=== PATIENT | female | born 1940 | race African-American/Black ===

== ENCOUNTER 2017-02-21 12:22 | Inpatient (IN) | payer MEDICARE, MEDICAID ==
[2017-02-21 14:44] LABS: HEMATOCRIT 21.5 % (36.0-47.0); HGB HCT DIFFERENCE -1.1; MEAN CORPUSCULAR HGB CONC 31.5 g/dL (32.0-36.0); MEAN CORPUSCULAR VOLUME 73 fl (80-97); RED BLOOD COUNT 2.94 10^6/uL (3.72-5.28); RED CELL DISTRIBUTION WIDTH 19.1 % (11.5-14.0); WHITE BLOOD COUNT 7.4 10^3/uL (4.0-10.5)
[2017-02-21 15:08] LABS: ALANINE AMINOTRANSFERASE 31 U/L (9-52); ALBUMIN 2.7 g/dL (3.5-5.0); ALKALINE PHOSPHATASE 139 U/L (38-126); ANION GAP 11 (5-19); ASPARTATE AMINO TRANSFERASE 22 U/L (14-36); BILIRUBIN,DIRECT 0.3 mg/dL (0.0-0.4); BILIRUBIN,TOTAL 0.3 mg/dL (0.2-1.3); BLOOD UREA NITROGEN 55 mg/dL (7-20); CALCIUM 9.5 mg/dL (8.4-10.2); CARBON DIOXIDE 28 mmol/L (22-30); CHLORIDE 107 mmol/L (98-107); CREATINE KINASE 44 U/L (30-135); CREATININE RESULT 1.99 mg/dL (0.52-1.25); GLUCOSE 136 mg/dL (75-110); POTASSIUM 4.3 mmol/L (3.6-5.0); TOTAL PROTEIN 5.6 g/dL (6.3-8.2)
[2017-02-21 15:14] LABS: HEMOGLOBIN 6.8 g/dL (12.0-15.5)
[2017-02-21 15:15] LABS: CREATINE KINASE MB 1.99 ng/mL (<4.55)
[2017-02-21 15:17] LABS: BASOPHILS % (MANUAL) 0 % (0-2); EOSINOPHILS % (MANUAL) 2 % (0-6); LYMPHOCYTES % (MANUAL) 23 % (13-45); TOTAL CELLS COUNTED 100
[2017-02-21 15:18] LABS: NUCLEATED RED BLOOD CELLS 6 /100 WBC (0); TROPONIN I < 0.012 ng/mL
[2017-02-21 15:22] LABS: ANISOCYTOSIS 2+; HYPOCHROMASIA 2+; OVALOCYTES 1+; POIKILOCYTOSIS 2+; SCHISTOCYTES 1+; TARGET CELLS SLIGHT; TOXIC GRANULATION SLIGHT; TOXIC VACUOLATION PRESENT
[2017-02-21 15:35] LABS: THYROID STIMULATING HORMONE 2.02 uIU/mL (0.47-4.68)
[2017-02-21] MEDS ORDERED: DEXTROSE 40% GEL 15 GM TUBE PO PRN (16:14)
[2017-02-21] MEDS ORDERED: DEXTROSE 50%-WATER SYRINGE 25 GM/50 ML DOSE IV PRN (16:14)
[2017-02-21] MEDS ORDERED: DEXTROSE 40% GEL 15 GM TUBE X 2 PO PRN (16:14)
[2017-02-21] MEDS ORDERED: DEXTROSE 50%-WATER SYRINGE 12.5 GM/25 ML DOSE IV PRN (16:14)
[2017-02-21] MEDS ORDERED: GLUCAGON,HUMAN RECOMB 1 MG INJ IM PRN (16:14)
--- NOTE | 2017-02-21 19:34 | EKG REPORT ---
SEVERITY:- ABNORMAL ECG - SINUS RHYTHM PROBABLE LEFT ATRIAL ABNORMALITY LOW VOLTAGE THROUGHOUT NONSPECIFIC T ABNORMALITIES, LATERAL LEADS : Confirmed by: Inna Fuller MD 21-Feb-2017 19:33:41
[2017-02-21 21:49] LABS: PROTHROMBIN TIME 12.8 SEC (11.4-15.4)
[2017-02-21 21:50] LABS: PARTIAL THROMBOPLASTIN TIME 37.4 SEC (23.5-35.8)
[2017-02-21 22:11] LABS: CREATINE KINASE MB 2.01 ng/mL (<4.55)
[2017-02-21 22:15] LABS: TROPONIN I < 0.012 ng/mL
[2017-02-21] MEDS: ISOSORBIDE MONONITRATE 20 MG TABLET PO SCH (22:19)
[2017-02-21] MEDS: POTASSIUM CHLORIDE 10 MEQ TABLET.SA PO SCH (22:19)
[2017-02-21] MEDS: PREGABALIN 25 MG CAPSULE PO SCH (22:19)
[2017-02-21] MEDS: CARVEDILOL 3.125 MG TABLET PO SCH (22:20)
[2017-02-21] MEDS: SIMVASTATIN 10 MG TABLET PO SCH (22:21)
[2017-02-21] MEDS: BUDESONIDE/FORMOTEROL 160-4.5 MCG 60 PUFF/6 GM MDI IH SCH (22:23)
[2017-02-21] MEDS: HYDRALAZINE HCL 50 MG TABLET PO SCH (22:23)
[2017-02-21] MEDS: INSULIN GLARGINE,HUM.REC.ANLOG 300 UNIT/3 ML INSULN.PEN SUBCUT SCH (22:24)
[2017-02-21] MEDS: INSULIN REG, HUMAN 100 UNIT/ML 3 ML VIAL (PYX) SUBCUT PRN (22:26)
[2017-02-21] MEDS: FUROSEMIDE INJ/PF 20 MG/2 ML SDV IV PRN (22:38)
[2017-02-22] MEDS: ASPIRIN 81 MG TABLET, CHEWABLE PO SCH ×2 (01:49→10:10)
[2017-02-22] MEDS: FUROSEMIDE INJ/PF 20 MG/2 ML SDV IV PRN (03:55)
[2017-02-22] MEDS: HYDRALAZINE HCL 50 MG TABLET PO SCH ×3 (06:06→21:35)
[2017-02-22] MEDS: ISOSORBIDE MONONITRATE 20 MG TABLET PO SCH ×3 (06:07→21:35)
[2017-02-22 08:36] LABS: HGB HCT DIFFERENCE -0.8; MEAN CORPUSCULAR HEMOGLOBIN 24.6 pg (27.0-33.4); MEAN CORPUSCULAR HGB CONC 32.4 g/dL (32.0-36.0); MEAN CORPUSCULAR VOLUME 76 fl (80-97); RED BLOOD COUNT 3.82 10^6/uL (3.72-5.28); RED CELL DISTRIBUTION WIDTH 19.2 % (11.5-14.0)
[2017-02-22] MEDS: LANSOPRAZOLE 15 MG TAB.RAP.DR PO SCH (08:46)
[2017-02-22 08:55] LABS: CREATINE KINASE MB 1.78 ng/mL (<4.55)
[2017-02-22 09:08] LABS: TROPONIN I < 0.012 ng/mL
[2017-02-22 09:12] LABS: HEMOGLOBIN 9.4 g/dL (12.0-15.5)
[2017-02-22] MEDS: BUDESONIDE/FORMOTEROL 160-4.5 MCG 60 PUFF/6 GM MDI IH SCH ×2 (10:09→21:43)
[2017-02-22] MEDS: POTASSIUM CHLORIDE 10 MEQ TABLET.SA PO SCH ×2 (10:10→21:35)
[2017-02-22] MEDS: PREGABALIN 25 MG CAPSULE PO SCH ×2 (10:10→21:36)
[2017-02-22] MEDS: FUROSEMIDE 80 MG TABLET PO SCH (10:10)
[2017-02-22] MEDS: CHOLECALCIFEROL (D3) 1,000 UNIT TABLET PO SCH (10:11)
[2017-02-22] MEDS: CARVEDILOL 3.125 MG TABLET PO SCH ×2 (10:11→21:36)
[2017-02-22] MEDS ORDERED: LIDOCAINE 1% INJ-PF (10 MG/ML) 30 ML SDV INJ PRN (10:29)
[2017-02-22] MEDS: INSULIN REG, HUMAN 100 UNIT/ML 3 ML VIAL (PYX) SUBCUT PRN ×2 (12:33→17:00)
[2017-02-22 14:57] LABS: FLUID APPEARANCE CLOUDY; FLUID TYPE PLEURAL
[2017-02-22 14:58] LABS: FLUID RBC DILUENT USED SALINE; FLUID RBC DILUTION FACTOR 51; FLUID RBC SIDE 1 129; FLUID RBC SIDE 2 125; TOTAL RBC SQUARES COUNTED FLD 50
--- NOTE | 2017-02-22 15:20 | PDOC H&P ---
History of Present Illness Admission Date/PCP: 02/21/17 12:22 History of Present Illness: CAITLIN YAO is a 76 year old female she came to the office for the first time to establish with us, she just relocated from [facility] in the office she was evaluated the blood pressure that was recorded was 76/44, that was electronic blood pressure recorded, the Roderick blood pressure was 60 systolic, and also on examination and on auscultation of the chest that was diminished air entry on the left lung field when compared to the right side because of for these findings she was admitted directly from the office into the hospital. The hemogram revealed hemoglobin of 6.8, she denies any passage of black tarry stool or any bloody stool but patient's daughter stated that about 2 weeks ago she was hospitalized in [facility] because of severe epistasis and she was managed with packing. She was not transfused at the time though so I assume that she probably was not anemic. Family gave history of diabetes with complication including nephropathy the also stated that she had cardiomyopathy I am not sure of details for this conditions have no records to review from our transferring state of [place]. Because of the history of cardiomyopathy a 2D echo was done, showed a large pleural effusion but the ejection fraction was preserved chest x-ray that was done also confirmed a left pleural effusion. The initial chest x-ray was done suggest fracture ribs on there was a concern that this could be hematoma but there is no history of fall or injury or trauma to the chest. CT chest without contrast was ordered, he showed on the left side a large pleural effusion with water density the pleural fluid appears loculated in the anterior of the left lower hemithorax there is also a moderate- sized pleural effusion on the right side. When I reviewed her medication she was on Xarelto but the indication is not clear, when she left [place] the Xarelto was discontinued because according to daughter there is no more indication for is use.. The 12-lead EKG shows sinus rhythm there is no acute ST T-wave segment changes Past Medical History Cardiac Medical History: Reports: Other - Unspecified cardiomyopathy Endocrine Medical History: Reports: Diabetes Mellitus Type 2 Renal/ Medical History: Reports: Chronic Kidney Disease - Chronic kidney disease stage III Social History Smoking Status: Never Smoker Frequency of Alcohol Use: None Hx Recreational Drug Use: No Drugs: None Hx Prescription Drug Abuse: No Family History Parental Family History Reviewed: Yes Children Family History Reviewed: Yes Sibling(s) Family History Reviewed.: Yes Medication/Allergy Home Medications: Aspirin [Aspirin 81 mg Chewable Tablet] 81 mg PO DAILY 02/21/17 Budesonide/Formoterol Fumarate [Symbicort Hfa 160-4.5 Mcg Inhaler 6 gm] 2 puff IH Q12 02/21/17 Carvedilol [Coreg 3.125 mg Tablet] 3.125 mg PO Q12 02/21/17 Cholecalciferol (Vitamin D3) [D3-2000] 2,000 unit PO DAILY 02/21/17 Ergocalciferol (Vitamin D2) [Drisdol 50,000 unit (1.25MG) Capsule] 50,000 units PO Q7MP PRN 02/21/17 Furosemide [Lasix] 80 mg PO DAILY 02/21/17 Hydralazine HCl 50 mg PO TID 02/21/17 Insulin Glargine,Hum.rec.anlog [Lantus Solostar] 26 unit SQ QHS 02/21/17 Isosorbide Mononitrate [Ismo 20 Mg Tablet] 20 mg PO TID 02/21/17 Omeprazole 20 mg PO DAILY 02/21/17 Potassium Chloride [Klor-Con 10 Meq Tablet.sa] 10 meq PO Q12 02/21/17 Pregabalin [Lyrica 25 Mg Capsule] 25 mg PO BID 02/21/17 Simvastatin 20 mg PO QHS 02/21/17 Allergies/Adverse Reactions: No Known Allergies Allergy (Unverified 02/21/17 15:46) Review of Systems Constitutional: PRESENT: fatigue, weakness Eyes: ABSENT: visual disturbances Ears: ABSENT: hearing changes Cardiovascular: PRESENT: dyspnea on exertion Respiratory: PRESENT: dyspnea Gastrointestinal: ABSENT: abdominal pain, constipation, diarrhea, hematemesis, hematochezia, nausea, vomiting Genitourinary: ABSENT: dysuria, hematuria Musculoskeletal: ABSENT: joint swelling Integumentary: ABSENT: rash, wounds Neurological: ABSENT: abnormal gait, abnormal speech, confusion, dizziness, focal weakness, syncope Psychiatric: ABSENT: anxiety, depression, homidical ideation, suicidal ideation Endocrine: ABSENT: cold intolerance, heat intolerance, menstrual abnormalities, polydipsia, polyuria Hematologic/Lymphatic: ABSENT: easy bleeding, easy bruising, lymphadenopathy Physical Exam Vital Signs: Temp Pulse Resp BP Pulse Ox 97.5 F 92 19 127/63 H 98 02/22/17 11:34 02/22/17 11:34 02/22/17 11:34 02/22/17 11:34 02/22/17 11:34 Intake & Output 02/21/17 02/22/17 02/23/17 06:59 06:59 06:59 Intake Total 2019 118 Balance 2019 118 Weight 81 kg General appearance: PRESENT: other - Elderly female she is alert, oriented Head exam: PRESENT: atraumatic, normocephalic Eye exam: PRESENT: conjunctiva pink, EOMI, PERRLA Mouth exam: PRESENT: moist, tongue midline Neck exam: PRESENT: full ROM Respiratory exam: PRESENT: decreased breath sounds Cardiovascular exam: PRESENT: RRR, +S1, +S2 GI/Abdominal exam: PRESENT: normal bowel sounds, soft Rectal exam: PRESENT: deferred Extremities exam: PRESENT: pedal edema Neurological exam: PRESENT: alert, CN II-XII grossly intact Psychiatric exam: PRESENT: appropriate affect, normal mood. ABSENT: homicidal ideation, suicidal ideation Skin exam: PRESENT: dry, intact, warm Results Laboratory Results: 02/22/17 08:01 02/21/17 14:22 02/21/17 02/21/17 02/21/17 14:22 14:22 14:22 WBC 7.4 RBC 2.94 L Hgb 6.8 L Hct 21.5 L MCV 73 L MCH 23.0 L MCHC 31.5 L RDW 19.1 H Plt Count 178 Seg Neutrophils % Not Reportable Lymphocytes % Not Reportable Monocytes % Not Reportable Eosinophils % Not Reportable Basophils % Not Reportable Absolute Neutrophils Not Reportable Absolute Lymphocytes Not Reportable Absolute Monocytes Not Reportable Absolute Eosinophils Not Reportable Absolute Basophils Not Reportable Retic Count (auto) Absolute Retic Sodium 146.0 H Potassium 4.3 Chloride 107 Carbon Dioxide 28 Anion Gap 11 BUN 55 H Creatinine 1.99 H Est GFR ( Amer) 30 L Est GFR (Non-Af Amer) 24 L Glucose 136 H Calcium 9.5 Iron TIBC % Saturation Ferritin Total Bilirubin 0.3 AST 22 ALT 31 Alkaline Phosphatase 139 H Total Protein 5.6 L Albumin 2.7 L Vitamin B12 Folate TSH 2.02 Free T4 1.35 Stool Occult Blood Blood Type Antibody Screen 02/21/17 02/21/17 02/21/17 14:22 14:22 16:25 WBC RBC Hgb Hct MCV MCH MCHC RDW Plt Count Seg Neutrophils % Lymphocytes % Monocytes % Eosinophils % Basophils % Absolute Neutrophils Absolute Lymphocytes Absolute Monocytes Absolute Eosinophils Absolute Basophils Retic Count (auto) 2.20 Absolute Retic 0.065 Sodium Potassium Chloride Carbon Dioxide Anion Gap BUN Creatinine Est GFR ( Amer) Est GFR (Non-Af Amer) Glucose Calcium Iron 11.0 L TIBC 340 % Saturation 3 Ferritin 110.00 Total Bilirubin AST ALT Alkaline Phosphatase Total Protein Albumin Vitamin B12 909.0 Folate 12.10 TSH Free T4 Stool Occult Blood Blood Type A POSITIVE Antibody Screen NEGATIVE 02/21/17 02/22/17 22:30 08:01 WBC 8.0 RBC 3.82 Hgb 9.4 L D Hct 29.0 L MCV 76 L MCH 24.6 L MCHC 32.4 RDW 19.2 H Plt Count 162 Seg Neutrophils % Lymphocytes % Monocytes % Eosinophils % Basophils % Absolute Neutrophils Absolute Lymphocytes Absolute Monocytes Absolute Eosinophils Absolute Basophils Retic Count (auto) Absolute Retic Sodium Potassium Chloride Carbon Dioxide Anion Gap BUN Creatinine Est GFR ( Amer) Est GFR (Non-Af Amer) Glucose Calcium Iron TIBC % Saturation Ferritin Total Bilirubin AST ALT Alkaline Phosphatase Total Protein Albumin Vitamin B12 Folate TSH Free T4 Stool Occult Blood NEGATIVE Blood Type Antibody Screen 02/21/17 02/21/17 02/21/17 14:22 14:22 21:30 Creatine Kinase 44 41 CK-MB (CK-2) 1.99 Troponin I < 0.012 NT-Pro-B Natriuret Pep 1060 H 02/21/17 02/22/17 02/22/17 21:30 08:01 08:01 Creatine Kinase 36 CK-MB (CK-2) 2.01 1.78 Troponin I < 0.012 < 0.012 NT-Pro-B Natriuret Pep Impressions: Renal Ultrasound 02/21/17 00:00 IMPRESSION: NORMAL RENAL AND BLADDER ULTRASOUND. Thoracentesis Ultrasound 02/21/17 20:31 IMPRESSION: SUCCESSFUL THORACENTESIS AND 8 UKRAINIAN LEFT CHEST TUBE PLACEMENT USING ULTRASOUND GUIDANCE. Chest CT 02/22/17 00:00 IMPRESSION: Bilateral pleural effusions left greater than right. Fluid over the anterior left lower chest appears loculated. Question loculations in the right pleural effusion posteriorly Chest X-Ray 02/22/17 00:00 IMPRESSION: Post left-sided 8 English pigtail pleural space catheter placement. No left pneumothorax. Slight decrease in large left pleural effusion. Assessment & Plan - Diagnosis (1) Hemothorax on left Is this a current diagnosis for this admission?: YesPlan: She has a large left hemothorax, differential diagnosis would include, malignancy, facial, trauma, coagulopathy. She will require thoracentesis and chest tube placement this be done ultrasound-guided (2) Anemia due to acute blood loss Plan: She be transfused with packed red blood cell (3) Diabetes mellitus type 2 in nonobese Is this a current diagnosis for this admission?: Yes (4) Hypotension Qualifiers: Hypotension type: other hypotension type Qualified Code(s): I95.89 - Other hypotension Is this a current diagnosis for this admission?: YesPlan: The blood pressure was low that was the main indication for hospital admission to start with, this probably related to the blood loss in the pleural space
[2017-02-22 15:26] LABS: PATH REVIEW PATHOLOGIST REVIEWED
--- NOTE | 2017-02-22 17:09 | PDOC PROGRESS REPORT ---
Subjective Progress Note for:: 02/22/17 Subjective:: She was admitted yesterday because of severe hypotension, left-sided pneumothorax, she had thoracentesis done today over a 1000 of hemorrhagic pleural effusion was drained, the etiology is not clear malignancy highly suspected as a possible cause Physical Exam Vital Signs: Temp Pulse Resp BP Pulse Ox 97.3 F 84 19 130/63 H 98 02/22/17 16:33 02/22/17 16:33 02/22/17 16:33 02/22/17 16:33 02/22/17 16:33 Intake & Output 02/21/17 02/22/17 02/23/17 06:59 06:59 06:59 Intake Total 2019 118 Balance 2019 118 Weight 81 kg General appearance: PRESENT: no acute distress Eye exam: PRESENT: PERRLA Respiratory exam: PRESENT: clear to auscultation kamar Cardiovascular exam: PRESENT: +S1, +S2 GI/Abdominal exam: PRESENT: soft Neurological exam: PRESENT: alert Results Laboratory Results: 02/22/17 08:01 02/21/17 14:22 02/21/17 02/21/17 02/21/17 14:22 14:22 14:22 WBC 7.4 RBC 2.94 L Hgb 6.8 L Hct 21.5 L MCV 73 L MCH 23.0 L MCHC 31.5 L RDW 19.1 H Plt Count 178 Retic Count (auto) 2.20 Absolute Retic 0.065 Iron 11.0 L TIBC 340 % Saturation 3 Ferritin 110.00 Vitamin B12 909.0 Folate 12.10 Fluid Type Fluid Source Fluid Color Fluid Appearance Fluid Viscosity Fluid WBC Fluid RBC Stool Occult Blood Blood Type Antibody Screen 02/21/17 02/21/17 02/22/17 16:25 22:30 08:01 WBC 8.0 RBC 3.82 Hgb 9.4 L D Hct 29.0 L MCV 76 L MCH 24.6 L MCHC 32.4 RDW 19.2 H Plt Count 162 Retic Count (auto) Absolute Retic Iron TIBC % Saturation Ferritin Vitamin B12 Folate Fluid Type Fluid Source Fluid Color Fluid Appearance Fluid Viscosity Fluid WBC Fluid RBC Stool Occult Blood NEGATIVE Blood Type A POSITIVE Antibody Screen NEGATIVE 02/22/17 13:40 WBC RBC Hgb Hct MCV MCH MCHC RDW Plt Count Retic Count (auto) Absolute Retic Iron TIBC % Saturation Ferritin Vitamin B12 Folate Fluid Type PLEURAL Fluid Source Fluid Color RED Fluid Appearance CLOUDY Fluid Viscosity LIQUID Fluid WBC 2670 Fluid RBC [address] Stool Occult Blood Blood Type Antibody Screen 02/21/17 02/21/17 02/21/17 14:22 14:22 21:30 Creatine Kinase 44 41 CK-MB (CK-2) 1.99 Troponin I < 0.012 NT-Pro-B Natriuret Pep 1060 H 02/21/17 02/22/17 02/22/17 21:30 08:01 08:01 Creatine Kinase 36 CK-MB (CK-2) 2.01 1.78 Troponin I < 0.012 < 0.012 NT-Pro-B Natriuret Pep Impressions: Renal Ultrasound 02/21/17 00:00 IMPRESSION: NORMAL RENAL AND BLADDER ULTRASOUND. Thoracentesis Ultrasound 02/21/17 20:31 IMPRESSION: SUCCESSFUL THORACENTESIS AND 8 PERSIAN LEFT CHEST TUBE PLACEMENT USING ULTRASOUND GUIDANCE. Chest CT 02/22/17 00:00 IMPRESSION: Bilateral pleural effusions left greater than right. Fluid over the anterior left lower chest appears loculated. Question loculations in the right pleural effusion posteriorly Chest X-Ray 02/22/17 00:00 IMPRESSION: Post left-sided 8 Hungarian pigtail pleural space catheter placement. No left pneumothorax. Slight decrease in large left pleural effusion. Assessment & Plan - Diagnosis (1) Hemothorax on left Is this a current diagnosis for this admission?: Yes (2) Anemia due to acute blood loss Is this a current diagnosis for this admission?: Yes (3) Diabetes mellitus type 2 in nonobese Is this a current diagnosis for this admission?: Yes (4) Hypotension Qualifiers: Hypotension type: other hypotension type Qualified Code(s): I95.89 - Other hypotension Is this a current diagnosis for this admission?: Yes - Plan Summary Plan Summary: The pretransfusion hemoglobin is 9, follow lab data
[2017-02-22 18:35] LABS: HEMATOCRIT 30.7 % (36.0-47.0); HGB HCT DIFFERENCE -0.7; MEAN CORPUSCULAR HEMOGLOBIN 24.7 pg (27.0-33.4); MEAN CORPUSCULAR HGB CONC 32.4 g/dL (32.0-36.0); MEAN CORPUSCULAR VOLUME 76 fl (80-97); RED BLOOD COUNT 4.03 10^6/uL (3.72-5.28); RED CELL DISTRIBUTION WIDTH 19.3 % (11.5-14.0); WHITE BLOOD COUNT 8.9 10^3/uL (4.0-10.5)
[2017-02-22 18:39] LABS: ALANINE AMINOTRANSFERASE 32 U/L (9-52); ALBUMIN 2.7 g/dL (3.5-5.0); ALKALINE PHOSPHATASE 152 U/L (38-126); ANION GAP 12 (5-19); ASPARTATE AMINO TRANSFERASE 18 U/L (14-36); BILIRUBIN,DIRECT 0.3 mg/dL (0.0-0.4); BILIRUBIN,TOTAL 0.4 mg/dL (0.2-1.3); BLOOD UREA NITROGEN 50 mg/dL (7-20); CALCIUM 9.4 mg/dL (8.4-10.2); CARBON DIOXIDE 28 mmol/L (22-30); CHLORIDE 106 mmol/L (98-107); CREATININE RESULT 1.93 mg/dL (0.52-1.25); GLUCOSE 296 mg/dL (75-110); POTASSIUM 4.3 mmol/L (3.6-5.0); SODIUM 145.5 mmol/L (137-145); TOTAL PROTEIN 5.8 g/dL (6.3-8.2)
[2017-02-22 19:02] LABS: BASOPHILS % (MANUAL) 0 % (0-2); EOSINOPHILS % (MANUAL) 2 % (0-6); LYMPHOCYTES % (MANUAL) 21 % (13-45); NUCLEATED RED BLOOD CELLS 14 /100 WBC (0); TOTAL CELLS COUNTED 100
[2017-02-22 19:06] LABS: ANISOCYTOSIS 2+; MICROCYTOSIS SLIGHT; OVALOCYTES 1+; POIKILOCYTOSIS 1+; POLYCHROMASIA SLIGHT; TARGET CELLS 1+
[2017-02-22 19:09] LABS: SCHISTOCYTES SLIGHT
[2017-02-22] MEDS: MORPHINE SULFATE 10 MG/ML INJ IV PRN (20:43)
[2017-02-22] MEDS: SIMVASTATIN 10 MG TABLET PO SCH (21:35)
[2017-02-22] MEDS: INSULIN GLARGINE,HUM.REC.ANLOG 300 UNIT/3 ML INSULN.PEN SUBCUT SCH (22:32)
[2017-02-23] MEDS: MORPHINE SULFATE 10 MG/ML INJ IV PRN ×3 (00:46→10:59)
[2017-02-23] MEDS: ISOSORBIDE MONONITRATE 20 MG TABLET PO SCH ×3 (05:43→22:26)
[2017-02-23] MEDS: HYDRALAZINE HCL 50 MG TABLET PO SCH ×3 (05:43→22:26)
[2017-02-23 06:41] LABS: ALANINE AMINOTRANSFERASE 25 U/L (9-52); ALBUMIN 2.4 g/dL (3.5-5.0); ALKALINE PHOSPHATASE 140 U/L (38-126); ANION GAP 10 (5-19); ASPARTATE AMINO TRANSFERASE 19 U/L (14-36); BILIRUBIN,DIRECT 0.1 mg/dL (0.0-0.4); BILIRUBIN,TOTAL 0.2 mg/dL (0.2-1.3); BLOOD UREA NITROGEN 48 mg/dL (7-20); CALCIUM 9.1 mg/dL (8.4-10.2); CARBON DIOXIDE 30 mmol/L (22-30); CHLORIDE 106 mmol/L (98-107); CREATININE RESULT 1.81 mg/dL (0.52-1.25); GLUCOSE 165 mg/dL (75-110); POTASSIUM 4.4 mmol/L (3.6-5.0); SODIUM 146.1 mmol/L (137-145); TOTAL PROTEIN 5.2 g/dL (6.3-8.2)
[2017-02-23 06:49] LABS: HEMATOCRIT 28.3 % (36.0-47.0); HEMOGLOBIN 9.3 g/dL (12.0-15.5); HGB HCT DIFFERENCE -0.4; MEAN CORPUSCULAR HEMOGLOBIN 24.9 pg (27.0-33.4); MEAN CORPUSCULAR HGB CONC 32.8 g/dL (32.0-36.0); MEAN CORPUSCULAR VOLUME 76 fl (80-97); RED BLOOD COUNT 3.74 10^6/uL (3.72-5.28); RED CELL DISTRIBUTION WIDTH 19.4 % (11.5-14.0)
[2017-02-23 07:20] LABS: WHITE BLOOD COUNT 7.8 10^3/uL (4.0-10.5)
[2017-02-23 07:28] LABS: BASOPHILS % (MANUAL) 1 % (0-2); EOSINOPHILS % (MANUAL) 4 % (0-6); LYMPHOCYTES % (MANUAL) 34 % (13-45); NUCLEATED RED BLOOD CELLS 16 /100 WBC (0); TOTAL CELLS COUNTED 100
[2017-02-23 07:30] LABS: ANISOCYTOSIS 2+; MICROCYTOSIS 1+; OVALOCYTES 1+; TARGET CELLS 1+
[2017-02-23 07:31] LABS: HYPOCHROMASIA 1+; POIKILOCYTOSIS 1+
[2017-02-23 07:32] LABS: POLYCHROMASIA SLIGHT
[2017-02-23] MEDS: LANSOPRAZOLE 15 MG TAB.RAP.DR PO SCH (08:53)
[2017-02-23] MEDS: CHOLECALCIFEROL (D3) 1,000 UNIT TABLET PO SCH (10:57)
[2017-02-23] MEDS: FUROSEMIDE 80 MG TABLET PO SCH (10:57)
[2017-02-23] MEDS: POTASSIUM CHLORIDE 10 MEQ TABLET.SA PO SCH ×2 (10:58→22:25)
[2017-02-23] MEDS: CARVEDILOL 3.125 MG TABLET PO SCH ×2 (10:58→22:24)
[2017-02-23] MEDS: BUDESONIDE/FORMOTEROL 160-4.5 MCG 60 PUFF/6 GM MDI IH SCH ×2 (10:58→22:23)
[2017-02-23] MEDS: PREGABALIN 25 MG CAPSULE PO SCH ×2 (11:02→22:24)
[2017-02-23] MEDS: INSULIN REG, HUMAN 100 UNIT/ML 3 ML VIAL (PYX) SUBCUT PRN (17:30)
--- NOTE | 2017-02-23 17:40 | XCELERA REPORT ---
[address] [address] Transthoracic Echocardiogram Report Name: CAITLIN YAO Age: 76 yrs Gender: Female : 1940 Patient Status: Inpatient Patient Location: [id number]\S\326\[id number]\A Study Date: 02/21/2017 02:33 PM Height: 68 in Weight: 179 lb BSA: 1.9 m2 Procedure: A two-dimensional transthoracic echocardiogram with color flow and Doppler was performed. Study Quality: Fair. Reason For Study: ischemic cardiomyopathy History: ISHCEMIC CARDIOMYOPATHY. Ordering Physician: RIC JAMES Performed By: Richa Shepard Interpretation Summary ISHCEMIC CARDIOMYOPATHY. The left ventricle is normal in size. There is normal left ventricular wall thickness. LV EF is 45% to 50% Left ventricular systolic function is mildly reduced. Doppler measurements suggest impaired left ventricular relaxation, which is associated with grade I/IV or mild diastolic dysfunction There is mild global hypokinesis of the left ventricle. There is no thrombus. The right atrium is normal. The left atrium is mildly dilated. The interatrial septum is intact with no evidence for an atrial septal defect. There is no mitral valve stenosis. There is no evidence of mitral valve prolapse. There is no vegetation seen on the mitral valve. There is a moderate amount of mitral regurgitation There is no aortic valvular vegetation. There is no aortic valve stenosis There is no LVOT obstruction. No aortic regurgitation is present. There is no tricuspid stenosis. There is a mild amount of tricuspid regurgitation Right ventricular systolic pressure is normal. RVSP is 27 mm of Hg , with RA mean of 10. There is no pericardial effusion. Large left pleural effusion. MMode/2D Measurements \T\ Calculations RVDd: 3.9 cm LVIDd: 4.1 cm FS: 29.1 % Ao root diam: 3.3 cm IVSd: 0.97 cm LVIDs: 2.9 cm EDV(Teich): 73.7 ml LVPWd: 0.98 cm ESV(Teich): 32.2 ml Ao root area: 8.4 cm2 EF(Teich): 56.3 % LA dimension: 4.2 cm Doppler Measurements \T\ Calculations MV E max delfina: MV P1/2t max delfina: Ao V2 max: LV V1 max P.0 cm/sec 118.5 cm/sec 142.4 cm/sec 3.9 mmHg MV A max delfina: MV P1/2t: 70.0 msec Ao max PG: LV V1 max: 119.0 cm/sec 8.1 mmHg 99.2 cm/sec MV E/A: 0.99 MVA(P1/2t): 3.1 cm2 MV dec slope: 495.9 cm/sec2 MV dec time: 0.24 sec PA V2 max: TR max delfina: 69.0 cm/sec 208.7 cm/sec PA max P.9 mmHgTR max P.4 mmHg Left Ventricle The left ventricle is normal in size. There is normal left ventricular wall thickness. LV EF is 45% to 50%. Left ventricular systolic function is mildly reduced. Doppler measurements suggest impaired left ventricular relaxation, which is associated with grade I/IV or mild diastolic dysfunction. There is mild global hypokinesis of the left ventricle. There is no thrombus. There is no ventricular septal defect visualized. Right Ventricle The right ventricle is grossly normal size. Atria The right atrium is normal. The left atrium is mildly dilated. The interatrial septum is intact with no evidence for an atrial septal defect. Mitral Valve There is no evidence of mitral valve prolapse. There is no vegetation seen on the mitral valve. There is no mitral valve stenosis. There is a moderate amount of mitral regurgitation. Aortic Valve There is no aortic valvular vegetation. There is no aortic valve stenosis. There is no LVOT obstruction. No aortic regurgitation is present. Tricuspid Valve There is no tricuspid stenosis. There is a mild amount of tricuspid regurgitation. Right ventricular systolic pressure is normal. RVSP is 27 mm of Hg , with RA mean of 10. Pulmonic Valve There is no pulmonic valvular stenosis. There is no pulmonic valvular regurgitation. Great Vessels The aortic root is normal size. Effusions There is no pericardial effusion. Large left pleural effusion. : RIC JAMES > Inna Fuller
--- NOTE | 2017-02-23 19:13 | PDOC PROGRESS REPORT ---
Subjective Progress Note for:: 02/23/17 Subjective:: Patient was seen by the bedside, she was admitted 2 days ago because of low blood pressure associated with severe anemia on left pneumothorax, the chest tube was removed today awaiting pathology results. Patient is not urinating and a Sanford catheter to be inserted. She looks like she is slow she does not seem to respond to questions very quickly, I will get a CT of the head/MRI of the head to rule out any intracranial lesion Physical Exam Vital Signs: Temp Pulse Resp BP Pulse Ox 97.2 F 74 19 110/95 H 100 02/23/17 16:35 02/23/17 16:35 02/23/17 16:35 02/23/17 16:35 02/23/17 16:35 Intake & Output 02/22/17 02/23/17 02/24/17 06:59 06:59 06:59 Intake Total 2019 645 195 Output Total 1675 Balance 2019 -0 195 Weight 81 kg 82.2 kg 82.2 kg General appearance: PRESENT: no acute distress Eye exam: PRESENT: PERRLA Cardiovascular exam: PRESENT: +S1, +S2 GI/Abdominal exam: PRESENT: soft Neurological exam: PRESENT: alert Results Laboratory Results: 02/23/17 05:29 02/23/17 05:29 02/21/17 02/22/17 02/22/17 14:22 13:40 13:40 WBC RBC Hgb Hct MCV MCH MCHC RDW Plt Count Seg Neutrophils % Lymphocytes % Monocytes % Eosinophils % Basophils % Absolute Neutrophils Absolute Lymphocytes Absolute Monocytes Absolute Eosinophils Absolute Basophils Sodium Potassium Chloride Carbon Dioxide Anion Gap BUN Creatinine Est GFR ( Amer) Est GFR (Non-Af Amer) Glucose Calcium Transferrin 265 Total Bilirubin AST ALT Alkaline Phosphatase Total Protein Albumin Fluid Glucose 194 Fluid Amylase 13 02/22/17 02/23/17 02/23/17 18:04 05:29 05:29 WBC 8.9 7.8 RBC 4.03 3.74 Hgb 10.0 L 9.3 L Hct 30.7 L 28.3 L MCV 76 L 76 L MCH 24.7 L 24.9 L MCHC 32.4 32.8 RDW 19.3 H 19.4 H Plt Count 153 138 L Seg Neutrophils % Not Reportable Lymphocytes % Not Reportable Monocytes % Not Reportable Eosinophils % Not Reportable Basophils % Not Reportable Absolute Neutrophils Not Reportable Absolute Lymphocytes Not Reportable Absolute Monocytes Not Reportable Absolute Eosinophils Not Reportable Absolute Basophils Not Reportable Sodium 146.1 H Potassium 4.4 Chloride 106 Carbon Dioxide 30 Anion Gap 10 BUN 48 H Creatinine 1.81 H Est GFR ( Amer) 33 L Est GFR (Non-Af Amer) 27 L Glucose 165 H Calcium 9.1 Transferrin Total Bilirubin 0.2 AST 19 ALT 25 Alkaline Phosphatase 140 H Total Protein 5.2 L Albumin 2.4 L Fluid Glucose Fluid Amylase 02/21/17 02/21/17 02/21/17 14:22 14:22 21:30 Creatine Kinase 44 41 CK-MB (CK-2) 1.99 Troponin I < 0.012 NT-Pro-B Natriuret Pep 1060 H 02/21/17 02/22/17 02/22/17 21:30 08:01 08:01 Creatine Kinase 36 CK-MB (CK-2) 2.01 1.78 Troponin I < 0.012 < 0.012 NT-Pro-B Natriuret Pep Impressions: Renal Ultrasound 02/21/17 00:00 IMPRESSION: NORMAL RENAL AND BLADDER ULTRASOUND. Thoracentesis Ultrasound 02/21/17 20:31 IMPRESSION: SUCCESSFUL THORACENTESIS AND 8 PAKISTANI LEFT CHEST TUBE PLACEMENT USING ULTRASOUND GUIDANCE. Chest CT 02/22/17 00:00 IMPRESSION: Bilateral pleural effusions left greater than right. Fluid over the anterior left lower chest appears loculated. Question loculations in the right pleural effusion posteriorly Chest X-Ray 02/23/17 13:27 IMPRESSION: No pneumothorax post left pleural space pigtail catheter removal. Left basilar airspace disease persists. Unchanged right basilar airspace disease and pleural effusion Assessment & Plan - Diagnosis (1) Hemothorax on left Is this a current diagnosis for this admission?: Yes (2) Anemia due to acute blood loss Is this a current diagnosis for this admission?: Yes (3) Diabetes mellitus type 2 in nonobese Is this a current diagnosis for this admission?: Yes (4) Hypotension Qualifiers: Hypotension type: other hypotension type Qualified Code(s): I95.89 - Other hypotension Is this a current diagnosis for this admission?: Yes
[2017-02-23] MEDS: SIMVASTATIN 10 MG TABLET PO SCH (22:25)
[2017-02-23] MEDS: INSULIN GLARGINE,HUM.REC.ANLOG 300 UNIT/3 ML INSULN.PEN SUBCUT SCH (22:26)
[2017-02-24] MEDS: HYDRALAZINE HCL 50 MG TABLET PO SCH ×3 (06:27→21:53)
[2017-02-24] MEDS: ISOSORBIDE MONONITRATE 20 MG TABLET PO SCH ×3 (06:28→21:52)
[2017-02-24] MEDS: LANSOPRAZOLE 15 MG TAB.RAP.DR PO SCH (08:43)
[2017-02-24] MEDS: ASPIRIN 81 MG TABLET, CHEWABLE PO SCH (10:51)
[2017-02-24] MEDS: FUROSEMIDE 80 MG TABLET PO SCH (10:51)
[2017-02-24] MEDS: POTASSIUM CHLORIDE 10 MEQ TABLET.SA PO SCH ×2 (10:51→21:52)
[2017-02-24] MEDS: CARVEDILOL 3.125 MG TABLET PO SCH ×2 (10:52→21:52)
[2017-02-24] MEDS: PREGABALIN 25 MG CAPSULE PO SCH ×2 (10:53→21:52)
[2017-02-24] MEDS: BUDESONIDE/FORMOTEROL 160-4.5 MCG 60 PUFF/6 GM MDI IH SCH ×2 (10:53→21:53)
[2017-02-24] MEDS: CHOLECALCIFEROL (D3) 1,000 UNIT TABLET PO SCH (10:53)
--- NOTE | 2017-02-24 19:04 | PDOC PROGRESS REPORT ---
Subjective Subjective:: She was seen by the bedside, the etiology of the left hemothorax is not clear Physical Exam Vital Signs: Temp Pulse Resp BP Pulse Ox 97.5 F 82 18 115/50 L 98 02/24/17 16:55 02/24/17 16:55 02/24/17 16:55 02/24/17 16:55 02/24/17 16:55 Intake & Output 02/23/17 02/24/17 02/25/17 06:59 06:59 06:59 Intake Total 645 555 970 Output Total 1675 2000 550 Balance -1030 -1445 420 Weight 82.2 kg 78.3 kg General appearance: PRESENT: no acute distress Eye exam: PRESENT: PERRLA Respiratory exam: PRESENT: clear to auscultation kamar GI/Abdominal exam: PRESENT: soft Results Laboratory Results: 02/23/17 05:29 02/23/17 05:29 02/21/17 02/21/17 02/21/17 14:22 14:22 21:30 Creatine Kinase 44 41 CK-MB (CK-2) 1.99 Troponin I < 0.012 NT-Pro-B Natriuret Pep 1060 H 02/21/17 02/22/17 02/22/17 21:30 08:01 08:01 Creatine Kinase 36 CK-MB (CK-2) 2.01 1.78 Troponin I < 0.012 < 0.012 NT-Pro-B Natriuret Pep Impressions: Renal Ultrasound 02/21/17 00:00 IMPRESSION: NORMAL RENAL AND BLADDER ULTRASOUND. Thoracentesis Ultrasound 02/21/17 20:31 IMPRESSION: SUCCESSFUL THORACENTESIS AND 8 MAURITANIAN LEFT CHEST TUBE PLACEMENT USING ULTRASOUND GUIDANCE. Chest CT 02/22/17 00:00 IMPRESSION: Bilateral pleural effusions left greater than right. Fluid over the anterior left lower chest appears loculated. Question loculations in the right pleural effusion posteriorly Head MRI 02/23/17 00:00 IMPRESSION: Negative for acute or sub-acute infarction. Left maxillary sinusitis. Chest X-Ray 02/23/17 13:27 IMPRESSION: No pneumothorax post left pleural space pigtail catheter removal. Left basilar airspace disease persists. Unchanged right basilar airspace disease and pleural effusion Assessment & Plan - Diagnosis (1) Hemothorax on left Is this a current diagnosis for this admission?: Yes (2) Anemia due to acute blood loss Is this a current diagnosis for this admission?: Yes (3) Diabetes mellitus type 2 in nonobese Is this a current diagnosis for this admission?: Yes (4) Hypotension Qualifiers: Hypotension type: other hypotension type Qualified Code(s): I95.89 - Other hypotension Is this a current diagnosis for this admission?: Yes - Plan Summary Plan Summary: Because of the hemothorax is not clear consultation will be obtained from pulmonary
[2017-02-24 19:29] LABS: HEMATOCRIT 30.8 % (36.0-47.0); HEMOGLOBIN 9.9 g/dL (12.0-15.5); HGB HCT DIFFERENCE -1.1; MEAN CORPUSCULAR HEMOGLOBIN 24.3 pg (27.0-33.4); MEAN CORPUSCULAR HGB CONC 32.1 g/dL (32.0-36.0); MEAN CORPUSCULAR VOLUME 76 fl (80-97); RED BLOOD COUNT 4.07 10^6/uL (3.72-5.28); RED CELL DISTRIBUTION WIDTH 19.7 % (11.5-14.0)
[2017-02-24 19:41] LABS: ALANINE AMINOTRANSFERASE 26 U/L (9-52); ALBUMIN 2.5 g/dL (3.5-5.0); ALKALINE PHOSPHATASE 140 U/L (38-126); ANION GAP 11 (5-19); ASPARTATE AMINO TRANSFERASE 19 U/L (14-36); BILIRUBIN,DIRECT 0.3 mg/dL (0.0-0.4); BILIRUBIN,TOTAL 0.3 mg/dL (0.2-1.3); BLOOD UREA NITROGEN 50 mg/dL (7-20); CALCIUM 9.2 mg/dL (8.4-10.2); CARBON DIOXIDE 31 mmol/L (22-30); CHLORIDE 103 mmol/L (98-107); CREATININE RESULT 1.95 mg/dL (0.52-1.25); GLUCOSE 186 mg/dL (75-110); POTASSIUM 4.7 mmol/L (3.6-5.0); SODIUM 145.1 mmol/L (137-145); TOTAL PROTEIN 5.5 g/dL (6.3-8.2)
[2017-02-24 19:50] LABS: BASOPHILS % (MANUAL) 1 % (0-2); EOSINOPHILS % (MANUAL) 1 % (0-6); LYMPHOCYTES % (MANUAL) 34 % (13-45); NUCLEATED RED BLOOD CELLS 25 /100 WBC (0); TOTAL CELLS COUNTED 100
[2017-02-24 19:54] LABS: ANISOCYTOSIS 2+; BURR CELLS SLIGHT; MICROCYTOSIS 1+; OVALOCYTES SLIGHT; POIKILOCYTOSIS 1+; TARGET CELLS 2+; TEAR DROP CELLS 1+
[2017-02-24 19:56] LABS: POLYCHROMASIA SLIGHT
[2017-02-24 19:57] LABS: SCHISTOCYTES SLIGHT
[2017-02-24] MEDS: SIMVASTATIN 10 MG TABLET PO SCH (21:52)
[2017-02-24] MEDS: INSULIN REG, HUMAN 100 UNIT/ML 3 ML VIAL (PYX) SUBCUT PRN (21:53)
[2017-02-24] MEDS: INSULIN GLARGINE,HUM.REC.ANLOG 300 UNIT/3 ML INSULN.PEN SUBCUT SCH (21:53)
[2017-02-25] MEDS: ISOSORBIDE MONONITRATE 20 MG TABLET PO SCH ×3 (06:10→21:58)
[2017-02-25] MEDS: HYDRALAZINE HCL 50 MG TABLET PO SCH ×3 (06:10→22:00)
--- NOTE | 2017-02-25 08:22 | PDOC CONSULTATION ---
Consultation Consult Date: 02/24/17 Attending physician:: RIC JAMES Consult reason:: hemothorax History of Present Illness Admission Date/PCP: 02/21/17 12:22 History of Present Illness: CAITLIN YAO is a 76 year old female she came to the office for the first time to establish with us, she just relocated from [facility] in the office she was evaluated the blood pressure that was recorded was 76/44, that was electronic blood pressure recorded, the Roderick blood pressure was 60 systolic, and also on examination and on auscultation of the chest that was diminished air entry on the left lung field when compared to the right side because of for these findings she was admitted directly from the office into the hospital. The hemogram revealed hemoglobin of 6.8, she denies any passage of black tarry stool or any bloody stool but patient's daughter stated that about 2 weeks ago she was hospitalized in [facility] because of severe epistasis and she was managed with packing. She was not transfused at the time though so I assume that she probably was not anemic. Family gave history of diabetes with complication including nephropathy the also stated that she had cardiomyopathy I am not sure of details for this conditions have no records to review from our transferring state of [place]. Because of the history of cardiomyopathy a 2D echo was done, showed a large pleural effusion but the ejection fraction was preserved chest x-ray that was done also confirmed a left pleural effusion. The initial chest x-ray was done suggest fracture ribs on there was a concern that this could be hematoma but there is no history of fall or injury or trauma to the chest. CT chest without contrast was ordered, he showed on the left side a large pleural effusion with water density the pleural fluid appears loculated in the anterior of the left lower hemithorax there is also a moderate- sized pleural effusion on the right side. When I reviewed her medication she was on Xarelto but the indication is not clear, when she left [place] the Xarelto was discontinued because according to daughter there is no more indication for is use.. The 12-lead EKG shows sinus rhythm there is no acute ST T-wave segment changes Past Medical History Cardiac Medical History: Reports: Other - Unspecified cardiomyopathy Endocrine Medical History: Reports: Diabetes Mellitus Type 2 Renal/ Medical History: Reports: Chronic Kidney Disease - Chronic kidney disease stage III Psychiatric Medical History: Denies: Depression Social History Information Source: Relative Smoking Status: Never Smoker Passive smoke exposure as: Both Frequency of Alcohol Use: None Hx Recreational Drug Use: No Drugs: None Hx Prescription Drug Abuse: No Do you have pets?: No Have you had any respiratory illnesses as a child?: No Have you been exposed to any sick contacts recently?: No Have you had any recent respiratory illnesses?: No Have you travelled outside of [place] in the past 12 months?: Yes - recently moved to [place] from [place] Family History Family History: CAD, DM, Hypertension Parental Family History Reviewed: Yes Children Family History Reviewed: Yes Sibling(s) Family History Reviewed.: Yes Medication/Allergy Home Medications: Aspirin [Aspirin 81 mg Chewable Tablet] 81 mg PO DAILY 02/21/17 Budesonide/Formoterol Fumarate [Symbicort Hfa 160-4.5 Mcg Inhaler 6 gm] 2 puff IH Q12 02/21/17 Carvedilol [Coreg 3.125 mg Tablet] 3.125 mg PO Q12 02/21/17 Cholecalciferol (Vitamin D3) [D3-2000] 2,000 unit PO DAILY 02/21/17 Ergocalciferol (Vitamin D2) [Drisdol 50,000 unit (1.25MG) Capsule] 50,000 units PO Q7MP PRN 02/21/17 Furosemide [Lasix] 80 mg PO DAILY 02/21/17 Hydralazine HCl 50 mg PO TID 02/21/17 Insulin Glargine,Hum.rec.anlog [Lantus Solostar] 26 unit SQ QHS 02/21/17 Isosorbide Mononitrate [Ismo 20 Mg Tablet] 20 mg PO TID 02/21/17 Omeprazole 20 mg PO DAILY 02/21/17 Potassium Chloride [Klor-Con 10 Meq Tablet.sa] 10 meq PO Q12 02/21/17 Pregabalin [Lyrica 25 Mg Capsule] 25 mg PO BID 02/21/17 Simvastatin 20 mg PO QHS 02/21/17 Allergies/Adverse Reactions: No Known Allergies Allergy (Unverified 02/21/17 15:46) Physical Exam Vital Signs: Temp Pulse Resp BP Pulse Ox 97.5 F 82 18 115/50 L 98 02/24/17 16:55 02/24/17 16:55 02/24/17 16:55 02/24/17 16:55 02/24/17 16:55 Intake & Output 02/23/17 02/24/17 02/25/17 06:59 06:59 06:59 Intake Total 645 555 570 Output Total 6825 7340 350 Balance -1030 -1448 220 Weight 82.2 kg 78.3 kg General appearance: PRESENT: disheveled, obese Head exam: PRESENT: atraumatic, normocephalic Eye exam: PRESENT: conjunctiva pale, EOMI Mouth exam: PRESENT: dry mucosa, neck supple Teeth exam: PRESENT: other - poor dentition Neck exam: ABSENT: carotid bruit, JVD, lymphadenopathy, thyromegaly Respiratory exam: PRESENT: decreased breath sounds, prolonged expiratory phas, rhonchi, symmetrical, unlabored Cardiovascular exam: PRESENT: RRR, +S1, +S2 Pulses: PRESENT: normal radial pulses GI/Abdominal exam: PRESENT: normal bowel sounds, soft. ABSENT: distended, guarding, mass, organolmegaly, rebound, tenderness Rectal exam: PRESENT: deferred Musculoskeletal exam: PRESENT: normal inspection Neurological exam: PRESENT: alert, awake Psychiatric exam: PRESENT: normal mood Skin exam: PRESENT: dry, warm Results Laboratory Results: 02/23/17 05:29 02/23/17 05:29 02/21/17 02/21/17 02/21/17 14:22 14:22 21:30 Creatine Kinase 44 41 CK-MB (CK-2) 1.99 Troponin I < 0.012 NT-Pro-B Natriuret Pep 1060 H 02/21/17 02/22/17 02/22/17 21:30 08:01 08:01 Creatine Kinase 36 CK-MB (CK-2) 2.01 1.78 Troponin I < 0.012 < 0.012 NT-Pro-B Natriuret Pep Impressions: Renal Ultrasound 02/21/17 00:00 IMPRESSION: NORMAL RENAL AND BLADDER ULTRASOUND. Thoracentesis Ultrasound 02/21/17 20:31 IMPRESSION: SUCCESSFUL THORACENTESIS AND 8 LAO LEFT CHEST TUBE PLACEMENT USING ULTRASOUND GUIDANCE. Chest CT 02/22/17 00:00 IMPRESSION: Bilateral pleural effusions left greater than right. Fluid over the anterior left lower chest appears loculated. Question loculations in the right pleural effusion posteriorly Head MRI 02/23/17 00:00 IMPRESSION: Negative for acute or sub-acute infarction. Left maxillary sinusitis. Chest X-Ray 02/23/17 13:27 IMPRESSION: No pneumothorax post left pleural space pigtail catheter removal. Left basilar airspace disease persists. Unchanged right basilar airspace disease and pleural effusion Assessment & Plan - Diagnosis (1) Retinopathy due to secondary diabetes mellitus Is this a current diagnosis for this admission?: Yes (2) Weakness generalized Is this a current diagnosis for this admission?: Yes (3) Anemia due to acute blood loss Is this a current diagnosis for this admission?: Yes (4) Diabetes mellitus type 2 in nonobese Is this a current diagnosis for this admission?: Yes (5) Hemothorax on left Is this a current diagnosis for this admission?: YesPlan: check ppd,follow H/H closely,relatively poor historian not sure of all her meds or why she is/was taking them consider bleeding time,checl for malignancy
--- NOTE | 2017-02-25 09:58 | PDOC PROGRESS REPORT ---
Subjective Progress Note for:: 02/25/17 Subjective:: Patient is currently doing fair patient's blood sugar was dropped this morning. Patient's currently sleepy daughter is in the bedside other than that discussed with nursing staff no other events happen Physical Exam Vital Signs: Temp Pulse Resp BP Pulse Ox 97.4 F 81 18 109/51 L 96 02/25/17 07:14 02/25/17 07:14 02/25/17 07:14 02/25/17 07:14 02/25/17 07:14 Intake & Output 02/24/17 02/25/17 02/26/17 06:59 06:59 06:59 Intake Total 555 1020 Output Total 2000 1550 Balance -1445 -530 Weight 78.3 kg General appearance: PRESENT: no acute distress Eye exam: PRESENT: PERRLA Mouth exam: PRESENT: dry mucosa Respiratory exam: PRESENT: clear to auscultation kamar Cardiovascular exam: PRESENT: +S1, +S2 GI/Abdominal exam: PRESENT: normal bowel sounds, soft Neurological exam: PRESENT: alert Results Laboratory Results: 02/24/17 19:13 02/24/17 19:13 02/24/17 02/24/17 19:13 19:13 WBC 8.0 RBC 4.07 Hgb 9.9 L Hct 30.8 L MCV 76 L MCH 24.3 L MCHC 32.1 RDW 19.7 H Plt Count 123 L Seg Neutrophils % Not Reportable Lymphocytes % Not Reportable Monocytes % Not Reportable Eosinophils % Not Reportable Basophils % Not Reportable Absolute Neutrophils Not Reportable Absolute Lymphocytes Not Reportable Absolute Monocytes Not Reportable Absolute Eosinophils Not Reportable Absolute Basophils Not Reportable Sodium 145.1 H Potassium 4.7 Chloride 103 Carbon Dioxide 31 H Anion Gap 11 BUN 50 H Creatinine 1.95 H Est GFR ( Amer) 30 L Est GFR (Non-Af Amer) 25 L Glucose 186 H Calcium 9.2 Total Bilirubin 0.3 AST 19 ALT 26 Alkaline Phosphatase 140 H Total Protein 5.5 L Albumin 2.5 L 02/22/17 13:40 Pleural Fluid AFB Smear Concentration - Final 02/22/17 13:40 Pleural Fluid Acid Fast Bacilli Smear - Final 02/21/17 02/21/17 02/21/17 14:22 14:22 21:30 Creatine Kinase 44 41 CK-MB (CK-2) 1.99 Troponin I < 0.012 NT-Pro-B Natriuret Pep 1060 H 02/21/17 02/22/17 02/22/17 21:30 08:01 08:01 Creatine Kinase 36 CK-MB (CK-2) 2.01 1.78 Troponin I < 0.012 < 0.012 NT-Pro-B Natriuret Pep Impressions: Renal Ultrasound 02/21/17 00:00 IMPRESSION: NORMAL RENAL AND BLADDER ULTRASOUND. Thoracentesis Ultrasound 02/21/17 20:31 IMPRESSION: SUCCESSFUL THORACENTESIS AND 8 [place] LEFT CHEST TUBE PLACEMENT USING ULTRASOUND GUIDANCE. Chest CT 02/22/17 00:00 IMPRESSION: Bilateral pleural effusions left greater than right. Fluid over the anterior left lower chest appears loculated. Question loculations in the right pleural effusion posteriorly Head MRI 02/23/17 00:00 IMPRESSION: Negative for acute or sub-acute infarction. Left maxillary sinusitis. Chest X-Ray 02/23/17 13:27 IMPRESSION: No pneumothorax post left pleural space pigtail catheter removal. Left basilar airspace disease persists. Unchanged right basilar airspace disease and pleural effusion Assessment & Plan - Diagnosis (1) Hemothorax on left Is this a current diagnosis for this admission?: YesPlan: The chest x-ray is getting better will follow with the pulmonary discussed with the daughter on the bedside (2) Diabetes mellitus type 2 in nonobese Is this a current diagnosis for this admission?: YesPlan: Continues to current medications (3) Weakness generalized Is this a current diagnosis for this admission?: YesPlan: Physical therapy - Time Time Spent with patient: 15-24 minutes Medications reviewed and adjusted accordingly: Yes Anticipated discharge: Other Within: Other - Plan Summary Plan Summary: current medications
[2017-02-25] MEDS ORDERED: TUBERCULIN,PURIF.PROT.DERIV. 5 TU/0.1 ML TEST 1 ML VIAL ID ONE (10:00)
[2017-02-25] MEDS: POTASSIUM CHLORIDE 10 MEQ TABLET.SA PO SCH ×2 (10:25→22:00)
[2017-02-25] MEDS: LANSOPRAZOLE 15 MG TAB.RAP.DR PO SCH (10:25)
[2017-02-25] MEDS: ASPIRIN 81 MG TABLET, CHEWABLE PO SCH (10:25)
[2017-02-25] MEDS: FUROSEMIDE 80 MG TABLET PO SCH (10:25)
[2017-02-25] MEDS: PREGABALIN 25 MG CAPSULE PO SCH ×2 (10:25→22:00)
[2017-02-25] MEDS: CHOLECALCIFEROL (D3) 1,000 UNIT TABLET PO SCH (10:26)
[2017-02-25] MEDS: CARVEDILOL 3.125 MG TABLET PO SCH ×2 (10:26→21:58)
[2017-02-25] MEDS: BUDESONIDE/FORMOTEROL 160-4.5 MCG 60 PUFF/6 GM MDI IH SCH ×2 (10:30→22:01)
[2017-02-25 11:04] LABS: ANION GAP 10 (5-19); BLOOD UREA NITROGEN 49 mg/dL (7-20); CALCIUM 9.1 mg/dL (8.4-10.2); CARBON DIOXIDE 32 mmol/L (22-30); CHLORIDE 102 mmol/L (98-107); CREATININE RESULT 2.02 mg/dL (0.52-1.25); GLUCOSE 216 mg/dL (75-110); SODIUM 144.4 mmol/L (137-145)
[2017-02-25 11:38] LABS: CREATININE URINE 71.8 mg/dL (Not Estab.)
[2017-02-25 13:55] LABS: ARTERIAL BLOOD BASE EXCESS 5.6 mmol/L; ARTERIAL BLOOD O2 SATURATION 86.8 % (94-98)
[2017-02-25 14:00] LABS: ALANINE AMINOTRANSFERASE 32 U/L (9-52); ALBUMIN 2.5 g/dL (3.5-5.0); ALKALINE PHOSPHATASE 147 U/L (38-126); ASPARTATE AMINO TRANSFERASE 26 U/L (14-36); BILIRUBIN,DIRECT 0.1 mg/dL (0.0-0.4); BILIRUBIN,TOTAL 0.2 mg/dL (0.2-1.3); TOTAL PROTEIN 5.3 g/dL (6.3-8.2)
[2017-02-25] MEDS: INSULIN REG, HUMAN 100 UNIT/ML 3 ML VIAL (PYX) SUBCUT PRN (16:55)
[2017-02-25] MEDS: SIMVASTATIN 10 MG TABLET PO SCH (22:00)
[2017-02-25] MEDS: INSULIN GLARGINE,HUM.REC.ANLOG 300 UNIT/3 ML INSULN.PEN SUBCUT SCH (22:01)
[2017-02-26] MEDS: ISOSORBIDE MONONITRATE 20 MG TABLET PO SCH ×3 (05:26→23:18)
[2017-02-26] MEDS: HYDRALAZINE HCL 50 MG TABLET PO SCH ×3 (05:26→23:16)
[2017-02-26] MEDS: INSULIN REG, HUMAN 100 UNIT/ML 3 ML VIAL (PYX) SUBCUT PRN ×3 (07:58→17:42)
[2017-02-26] MEDS: LANSOPRAZOLE 15 MG TAB.RAP.DR PO SCH (07:58)
[2017-02-26 08:22] LABS: ARTERIAL BLOOD BASE EXCESS 7.7 mmol/L; ARTERIAL BLOOD O2 SATURATION 93.8 % (94-98)
--- NOTE | 2017-02-26 09:04 | PDOC PROGRESS REPORT ---
Subjective Progress Note for:: 02/26/17 Subjective:: Patient is currently doing fair much better than the yesterday. Patient was very sleepy yesterday and pretty much it workup found that patient's CO2 level is elevated and patient was put on a BiPAP. Patient's much alert awake this morning Patients denied any chest pain denied any shortness of the breath and p.o. intake is good Physical Exam Vital Signs: Temp Pulse Resp BP Pulse Ox 98.5 F 86 18 121/67 96 02/26/17 07:11 02/26/17 07:11 02/26/17 07:11 02/26/17 07:11 02/26/17 07:11 Intake & Output 02/25/17 02/26/17 02/27/17 06:59 06:59 06:59 Intake Total 1020 606 Output Total 1550 1500 Balance -530 -894 General appearance: PRESENT: no acute distress, well-developed, well-nourished Head exam: PRESENT: atraumatic, normocephalic Eye exam: PRESENT: conjunctiva pink, EOMI, PERRLA. ABSENT: scleral icterus Ear exam: PRESENT: normal external ear exam Mouth exam: PRESENT: moist, tongue midline Neck exam: PRESENT: full ROM. ABSENT: carotid bruit, JVD, lymphadenopathy, thyromegaly Respiratory exam: PRESENT: clear to auscultation kamar Cardiovascular exam: PRESENT: RRR. ABSENT: diastolic murmur, rubs, systolic murmur Pulses: PRESENT: normal dorsalis pedis pul, +2 pedal pulses bilateral Vascular exam: PRESENT: normal capillary refill GI/Abdominal exam: PRESENT: normal bowel sounds, soft. ABSENT: distended, guarding, mass, organolmegaly, rebound, tenderness Rectal exam: PRESENT: deferred Neurological exam: PRESENT: alert, awake, oriented to person, oriented to place , oriented to time, oriented to situation, CN II-XII grossly intact. ABSENT: motor sensory deficit Psychiatric exam: PRESENT: appropriate affect, normal mood. ABSENT: homicidal ideation, suicidal ideation Skin exam: PRESENT: dry, intact, warm. ABSENT: cyanosis, rash Results Laboratory Results: 02/24/17 19:13 02/25/17 10:30 02/25/17 02/25/17 02/25/17 10:30 10:30 13:40 Carbonic Acid 1.77 H HCO3/H2CO3 Ratio 18:1 ABG pH 7.36 ABG pCO2 58.8 H ABG pO2 55.1 L ABG HCO3 32.6 H ABG O2 Saturation 86.8 L ABG Base Excess 5.6 FiO2 2L Sodium 144.4 Potassium 5.0 Chloride 102 Carbon Dioxide 32 H Anion Gap 10 BUN 49 H Creatinine 2.02 H Est GFR ( Amer) 29 L Est GFR (Non-Af Amer) 24 L Glucose 216 H Calcium 9.1 Total Bilirubin 0.2 AST 26 ALT 32 Alkaline Phosphatase 147 H Ammonia Total Protein 5.3 L Albumin 2.5 L 02/25/17 02/26/17 14:15 07:55 Carbonic Acid 1.56 H HCO3/H2CO3 Ratio 21:1 ABG pH 7.43 ABG pCO2 51.7 H ABG pO2 68.3 L ABG HCO3 33.2 H ABG O2 Saturation 93.8 L ABG Base Excess 7.7 FiO2 ROOM AIR Sodium Potassium Chloride Carbon Dioxide Anion Gap BUN Creatinine Est GFR ( Amer) Est GFR (Non-Af Amer) Glucose Calcium Total Bilirubin AST ALT Alkaline Phosphatase Ammonia 30.6 Total Protein Albumin 02/22/17 13:40 Pleural Fluid AFB Smear Concentration - Final 02/22/17 13:40 Pleural Fluid Acid Fast Bacilli Smear - Final 02/21/17 02/21/17 02/21/17 14:22 14:22 21:30 Creatine Kinase 44 41 CK-MB (CK-2) 1.99 Troponin I < 0.012 NT-Pro-B Natriuret Pep 1060 H 02/21/17 02/22/17 02/22/17 21:30 08:01 08:01 Creatine Kinase 36 CK-MB (CK-2) 2.01 1.78 Troponin I < 0.012 < 0.012 NT-Pro-B Natriuret Pep Impressions: Renal Ultrasound 02/21/17 00:00 IMPRESSION: NORMAL RENAL AND BLADDER ULTRASOUND. Thoracentesis Ultrasound 02/21/17 20:31 IMPRESSION: SUCCESSFUL THORACENTESIS AND 8 PASHT[place] LEFT CHEST TUBE PLACEMENT USING ULTRASOUND GUIDANCE. Chest CT 02/22/17 00:00 IMPRESSION: Bilateral pleural effusions left greater than right. Fluid over the anterior left lower chest appears loculated. Question loculations in the right pleural effusion posteriorly Head MRI 02/23/17 00:00 IMPRESSION: Negative for acute or sub-acute infarction. Left maxillary sinusitis. Chest X-Ray 02/25/17 00:00 IMPRESSION: Increasing vascular congestion. Bilateral pleural effusions slightly larger than previous. Bibasilar opacities. Assessment & Plan - Diagnosis (1) Hemothorax on left Is this a current diagnosis for this admission?: YesPlan: All resolved (2) Diabetes mellitus type 2 in nonobese Is this a current diagnosis for this admission?: YesPlan: Patient is running low blood sugar will cut down the insulin at night from 25to 15 (3) Weakness generalized Is this a current diagnosis for this admission?: YesPlan: Physical therapy (4) Hypercapnic respiratory failure Qualifiers: Chronicity: chronic Qualified Code(s): J96.12 - Chronic respiratory failure with hypercapnia Is this a current diagnosis for this admission?: YesPlan: We will put the patient in the CPAP pH is stable follow with the pulmonary - Time Time Spent with patient: 15-24 minutes Medications reviewed and adjusted accordingly: Yes Anticipated discharge: Other Within: when bed available - Inpatient Certification Medical Necessity: Need Close Monitoring Due to Risk of Patient Decompensation Post Hospital Care: D/C P[employer] Documentation - Plan Summary Plan Summary: Discussed with the daughter and the bedside about the patient's current condition and all the test results
[2017-02-26 10:33] LABS: ANION GAP 8 (5-19); BLOOD UREA NITROGEN 47 mg/dL (7-20); CARBON DIOXIDE 33 mmol/L (22-30); CHLORIDE 102 mmol/L (98-107); CREATININE RESULT 1.86 mg/dL (0.52-1.25); GLUCOSE 239 mg/dL (75-110); POTASSIUM 4.6 mmol/L (3.6-5.0); SODIUM 142.9 mmol/L (137-145)
[2017-02-26] MEDS: CARVEDILOL 3.125 MG TABLET PO SCH ×2 (10:39→23:18)
[2017-02-26] MEDS: PREGABALIN 25 MG CAPSULE PO SCH ×2 (10:39→23:16)
[2017-02-26] MEDS: CHOLECALCIFEROL (D3) 1,000 UNIT TABLET PO SCH (10:39)
[2017-02-26] MEDS: ASPIRIN 81 MG TABLET, CHEWABLE PO SCH (10:40)
[2017-02-26] MEDS: POTASSIUM CHLORIDE 10 MEQ TABLET.SA PO SCH ×2 (10:40→23:17)
[2017-02-26] MEDS: BUDESONIDE/FORMOTEROL 160-4.5 MCG 60 PUFF/6 GM MDI IH SCH ×2 (10:40→23:17)
[2017-02-26] MEDS: FUROSEMIDE 80 MG TABLET PO SCH (10:40)
[2017-02-26] MEDS: MORPHINE SULFATE 10 MG/ML INJ IV PRN (16:00)
--- NOTE | 2017-02-26 16:56 | EKG REPORT ---
SEVERITY:- ABNORMAL ECG - SINUS RHYTHM LOW VOLTAGE IN FRONTAL LEADS NONSPECIFIC T ABNORMALITIES, ANT-LAT LEADS : Confirmed by: Inna Fuller MD 26-Feb-2017 16:56:32
[2017-02-26] MEDS: SIMVASTATIN 10 MG TABLET PO SCH (23:17)
[2017-02-26] MEDS: INSULIN GLARGINE,HUM.REC.ANLOG 300 UNIT/3 ML INSULN.PEN SUBCUT SCH (23:17)
[2017-02-27] MEDS: HYDRALAZINE HCL 50 MG TABLET PO SCH ×3 (06:37→22:15)
[2017-02-27] MEDS: ISOSORBIDE MONONITRATE 20 MG TABLET PO SCH ×3 (06:37→22:16)
[2017-02-27 06:43] LABS: HEMATOCRIT 30.1 % (36.0-47.0); HEMOGLOBIN 9.7 g/dL (12.0-15.5); MEAN CORPUSCULAR HEMOGLOBIN 24.5 pg (27.0-33.4); MEAN CORPUSCULAR HGB CONC 32.4 g/dL (32.0-36.0); MEAN CORPUSCULAR VOLUME 76 fl (80-97); RED BLOOD COUNT 3.98 10^6/uL (3.72-5.28); RED CELL DISTRIBUTION WIDTH 20.5 % (11.5-14.0)
[2017-02-27 07:16] LABS: ANION GAP 10 (5-19); BLOOD UREA NITROGEN 50 mg/dL (7-20); CALCIUM 9.2 mg/dL (8.4-10.2); CARBON DIOXIDE 31 mmol/L (22-30); CHLORIDE 102 mmol/L (98-107); CREATININE RESULT 2.03 mg/dL (0.52-1.25); GLUCOSE 263 mg/dL (75-110); POTASSIUM 5.4 mmol/L (3.6-5.0); SODIUM 143.2 mmol/L (137-145)
[2017-02-27 07:40] LABS: BASOPHILS % (MANUAL) 0 % (0-2); EOSINOPHILS % (MANUAL) 5 % (0-6); LYMPHOCYTES % (MANUAL) 29 % (13-45); NUCLEATED RED BLOOD CELLS 5 /100 WBC (0); TOTAL CELLS COUNTED 100
[2017-02-27 07:43] LABS: ANISOCYTOSIS 2+; HYPOCHROMASIA 1+; MICROCYTOSIS 1+; POIKILOCYTOSIS 1+; TARGET CELLS 1+
[2017-02-27 07:44] LABS: WHITE BLOOD COUNT 10.4 10^3/uL (4.0-10.5)
[2017-02-27] MEDS: LANSOPRAZOLE 15 MG TAB.RAP.DR PO SCH (08:32)
[2017-02-27] MEDS: INSULIN REG, HUMAN 100 UNIT/ML 3 ML VIAL (PYX) SUBCUT PRN ×3 (08:32→17:37)
[2017-02-27] MEDS: ASPIRIN 81 MG TABLET, CHEWABLE PO SCH (09:30)
[2017-02-27] MEDS: FUROSEMIDE 80 MG TABLET PO SCH (09:30)
[2017-02-27] MEDS: PREGABALIN 25 MG CAPSULE PO SCH ×2 (09:30→22:15)
[2017-02-27] MEDS: CHOLECALCIFEROL (D3) 1,000 UNIT TABLET PO SCH (09:30)
[2017-02-27] MEDS: CARVEDILOL 3.125 MG TABLET PO SCH ×2 (09:31→22:15)
[2017-02-27] MEDS: BUDESONIDE/FORMOTEROL 160-4.5 MCG 60 PUFF/6 GM MDI IH SCH ×2 (09:31→22:14)
[2017-02-27] MEDS: POTASSIUM CHLORIDE 10 MEQ TABLET.SA PO SCH (09:32)
[2017-02-27] MEDS ORDERED: ERGOCALCIFEROL (VITAMIN D2) 50000 UNIT (1.25 MG) CAPSULE PO SCH (10:00)
--- NOTE | 2017-02-27 19:37 | PDOC PROGRESS REPORT ---
Subjective Progress Note for:: 02/27/17 Subjective:: She was seen by the bedside, I was gone this weekend and I came back today to see patient is now requiring noninvasive positive pressure ventilation, BiPAP to support breathing. A 2D echo showed low normal ejection fraction of left ventricle EF of 45-50%, the kidney function is somewhat worsen. She had a history of diabetic nephropathy, questionable cardiorenal syndrome consultation will be obtained from nephrology for assessment, patient's daughter stated that patient will be probably return back to [place] once she discharged from the hospital Physical Exam Vital Signs: Temp Pulse Resp BP Pulse Ox 98.4 F 87 18 98/65 L 91 L 02/27/17 16:00 02/27/17 16:00 02/27/17 16:00 02/27/17 16:00 02/27/17 16:00 Intake & Output 02/26/17 02/27/17 02/28/17 06:59 06:59 06:59 Intake Total 606 388 246 Output Total 1500 2200 1200 Balance -894 -1812 -954 General appearance: PRESENT: no acute distress Eye exam: PRESENT: PERRLA Respiratory exam: PRESENT: clear to auscultation kamar Cardiovascular exam: PRESENT: +S1, +S2 Neurological exam: PRESENT: alert Results Laboratory Results: 02/27/17 05:33 02/27/17 05:33 02/27/17 02/27/17 05:33 05:33 WBC 10.4 RBC 3.98 Hgb 9.7 L Hct 30.1 L MCV 76 L MCH 24.5 L MCHC 32.4 RDW 20.5 H Plt Count 115 L Seg Neutrophils % Not Reportable Lymphocytes % Not Reportable Monocytes % Not Reportable Eosinophils % Not Reportable Basophils % Not Reportable Absolute Neutrophils Not Reportable Absolute Lymphocytes Not Reportable Absolute Monocytes Not Reportable Absolute Eosinophils Not Reportable Absolute Basophils Not Reportable Sodium 143.2 Potassium 5.4 H Chloride 102 Carbon Dioxide 31 H Anion Gap 10 BUN 50 H Creatinine 2.03 H Est GFR ( Amer) 29 L Est GFR (Non-Af Amer) 24 L Glucose 263 H Calcium 9.2 02/21/17 02/21/17 02/21/17 14:22 14:22 21:30 Creatine Kinase 44 41 CK-MB (CK-2) 1.99 Troponin I < 0.012 NT-Pro-B Natriuret Pep 1060 H 02/21/17 02/22/17 02/22/17 21:30 08:01 08:01 Creatine Kinase 36 CK-MB (CK-2) 2.01 1.78 Troponin I < 0.012 < 0.012 NT-Pro-B Natriuret Pep Impressions: Renal Ultrasound 02/21/17 00:00 IMPRESSION: NORMAL RENAL AND BLADDER ULTRASOUND. Thoracentesis Ultrasound 02/21/17 20:31 IMPRESSION: SUCCESSFUL THORACENTESIS AND 8 [place] LEFT CHEST TUBE PLACEMENT USING ULTRASOUND GUIDANCE. Chest CT 02/22/17 00:00 IMPRESSION: Bilateral pleural effusions left greater than right. Fluid over the anterior left lower chest appears loculated. Question loculations in the right pleural effusion posteriorly Head MRI 02/23/17 00:00 IMPRESSION: Negative for acute or sub-acute infarction. Left maxillary sinusitis. Chest X-Ray 02/26/17 00:00 IMPRESSION: CHF. No significant change. Assessment & Plan - Diagnosis (1) Hemothorax on left Is this a current diagnosis for this admission?: Yes (2) Anemia due to acute blood loss Is this a current diagnosis for this admission?: Yes (3) Diabetes mellitus type 2 in nonobese Is this a current diagnosis for this admission?: Yes (4) Hypotension Qualifiers: Hypotension type: other hypotension type Qualified Code(s): I95.89 - Other hypotension Is this a current diagnosis for this admission?: Yes (5) Diabetes mellitus with nephropathy Is this a current diagnosis for this admission?: YesPlan: Consultations obtained from nephrology
[2017-02-27] MEDS: SIMVASTATIN 10 MG TABLET PO SCH (22:15)
[2017-02-27] MEDS: INSULIN GLARGINE,HUM.REC.ANLOG 300 UNIT/3 ML INSULN.PEN SUBCUT SCH (22:15)
[2017-02-28 06:14] LABS: ANION GAP 10 (5-19); BLOOD UREA NITROGEN 47 mg/dL (7-20); CALCIUM 9.4 mg/dL (8.4-10.2); CARBON DIOXIDE 34 mmol/L (22-30); CHLORIDE 100 mmol/L (98-107); CREATININE RESULT 1.96 mg/dL (0.52-1.25); GLUCOSE 258 mg/dL (75-110); POTASSIUM 4.7 mmol/L (3.6-5.0)
[2017-02-28] MEDS: ISOSORBIDE MONONITRATE 20 MG TABLET PO SCH ×3 (06:35→22:56)
[2017-02-28] MEDS: HYDRALAZINE HCL 50 MG TABLET PO SCH ×3 (06:35→22:56)
[2017-02-28] MEDS: LANSOPRAZOLE 15 MG TAB.RAP.DR PO SCH (08:35)
[2017-02-28] MEDS: INSULIN REG, HUMAN 100 UNIT/ML 3 ML VIAL (PYX) SUBCUT PRN ×4 (08:36→23:41)
[2017-02-28] MEDS: BUDESONIDE/FORMOTEROL 160-4.5 MCG 60 PUFF/6 GM MDI IH SCH ×2 (11:44→22:56)
[2017-02-28] MEDS: CHOLECALCIFEROL (D3) 1,000 UNIT TABLET PO SCH (11:44)
[2017-02-28] MEDS: CARVEDILOL 3.125 MG TABLET PO SCH ×2 (11:44→22:56)
[2017-02-28] MEDS: ASPIRIN 81 MG TABLET, CHEWABLE PO SCH (11:44)
[2017-02-28] MEDS: PREGABALIN 25 MG CAPSULE PO SCH ×2 (11:44→22:56)
[2017-02-28] MEDS: FUROSEMIDE 80 MG TABLET PO SCH (11:44)
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
[2017-02-28] MEDS ORDERED: FERUMOXYTOL 510 MG in NORMAL SALINE 100 ML IV ONE (19:00)
--- NOTE | 2017-02-28 20:43 | PDOC PROGRESS REPORT ---
Subjective Progress Note for:: 02/28/17 Subjective:: She was seen by the bedside, she had a spillage of the iron that was given to her. I will consult GI tomorrow because of the anemia and the fact that she has GI symptoms of diarrhea. though the daughter stated that sometime she also have constipation, this suggests irritable bowel syndrome, she has constipation alternating with diarrhea. Physical Exam Vital Signs: Temp Pulse Resp BP Pulse Ox 98.9 F 101 H 20 117/50 L 97 02/28/17 15:30 02/28/17 15:30 02/28/17 15:30 02/28/17 15:30 02/28/17 15:30 Intake & Output 02/27/17 02/28/17 03/01/17 06:59 06:59 06:59 Intake Total 388 750 780 Output Total 2200 2400 900 Balance -1812 -1650 -120 Weight 76.8 kg General appearance: PRESENT: no acute distress Eye exam: PRESENT: PERRLA Respiratory exam: PRESENT: clear to auscultation kamar Cardiovascular exam: PRESENT: +S1, +S2 GI/Abdominal exam: PRESENT: soft Neurological exam: PRESENT: alert, CN II-XII grossly intact Results Laboratory Results: 02/27/17 05:33 02/28/17 05:13 02/28/17 05:13 Sodium 144.0 Potassium 4.7 Chloride 100 Carbon Dioxide 34 H Anion Gap 10 BUN 47 H Creatinine 1.96 H Est GFR ( Amer) 30 L Est GFR (Non-Af Amer) 25 L Glucose 258 H Calcium 9.4 02/22/17 13:40 Pleural Fluid Fungal Smear - Final 02/22/17 13:40 Pleural Fluid Fungal Smear - Final 02/22/17 13:40 Pleural Fluid Fungal Smear - Final 02/21/17 02/21/17 02/21/17 14:22 14:22 21:30 Creatine Kinase 44 41 CK-MB (CK-2) 1.99 Troponin I < 0.012 NT-Pro-B Natriuret Pep 1060 H 02/21/17 02/22/17 02/22/17 21:30 08:01 08:01 Creatine Kinase 36 CK-MB (CK-2) 2.01 1.78 Troponin I < 0.012 < 0.012 NT-Pro-B Natriuret Pep Impressions: Renal Ultrasound 02/21/17 00:00 IMPRESSION: NORMAL RENAL AND BLADDER ULTRASOUND. Thoracentesis Ultrasound 02/21/17 20:31 IMPRESSION: SUCCESSFUL THORACENTESIS AND 8 [place] LEFT CHEST TUBE PLACEMENT USING ULTRASOUND GUIDANCE. Chest CT 02/22/17 00:00 IMPRESSION: Bilateral pleural effusions left greater than right. Fluid over the anterior left lower chest appears loculated. Question loculations in the right pleural effusion posteriorly Head MRI 02/23/17 00:00 IMPRESSION: Negative for acute or sub-acute infarction. Left maxillary sinusitis. Chest X-Ray 02/26/17 00:00 IMPRESSION: CHF. No significant change. Assessment & Plan - Diagnosis (1) Hemothorax on left Is this a current diagnosis for this admission?: Yes (2) Anemia due to acute blood loss Is this a current diagnosis for this admission?: Yes (3) Diabetes mellitus type 2 in nonobese Is this a current diagnosis for this admission?: Yes (4) Hypotension Qualifiers: Hypotension type: other hypotension type Qualified Code(s): I95.89 - Other hypotension Is this a current diagnosis for this admission?: Yes (5) Diabetes mellitus with nephropathy Is this a current diagnosis for this admission?: Yes (6) Diarrhea Qualifiers: Diarrhea type: unspecified type Qualified Code(s): R19.7 - Diarrhea , unspecified Is this a current diagnosis for this admission?: YesPlan: She had diarrhea alternating with constipation, she also presented with severe anemia which I am not sure cannot be explained on the basis of hemothorax by itself, GI consultation will be obtained for GI endoscopy
[2017-02-28] MEDS: SIMVASTATIN 10 MG TABLET PO SCH (22:56)
[2017-02-28] MEDS: INSULIN GLARGINE,HUM.REC.ANLOG 300 UNIT/3 ML INSULN.PEN SUBCUT SCH (23:26)
[2017-03-01] MEDS ORDERED: FERUMOXYTOL (NESRD) 510 MG/17 ML VIAL IV PRN (01:03)
[2017-03-01] MEDS ORDERED: FERUMOXYTOL 510 MG in NORMAL SALINE 100 ML IV ONE (02:00)
[2017-03-01] MEDS ORDERED: FERUMOXYTOL (NESRD) 510 MG/17 ML VIAL IV ONE (02:09)
[2017-03-01] MEDS: ISOSORBIDE MONONITRATE 20 MG TABLET PO SCH ×3 (05:34→22:58)
[2017-03-01] MEDS: HYDRALAZINE HCL 50 MG TABLET PO SCH ×3 (05:34→22:58)
[2017-03-01 07:14] LABS: ANION GAP 13 (5-19); BLOOD UREA NITROGEN 41 mg/dL (7-20); CALCIUM 9.7 mg/dL (8.4-10.2); CARBON DIOXIDE 30 mmol/L (22-30); CHLORIDE 103 mmol/L (98-107); CREATININE RESULT 1.59 mg/dL (0.52-1.25); GLUCOSE 151 mg/dL (75-110); PHOSPHORUS 4.1 mg/dL (2.5-4.5); POTASSIUM 4.5 mmol/L (3.6-5.0); SODIUM 145.8 mmol/L (137-145)
[2017-03-01] MEDS: LANSOPRAZOLE 15 MG TAB.RAP.DR PO SCH (08:16)
[2017-03-01] MEDS: BUDESONIDE/FORMOTEROL 160-4.5 MCG 60 PUFF/6 GM MDI IH SCH ×2 (09:55→22:57)
[2017-03-01] MEDS: FUROSEMIDE 80 MG TABLET PO SCH (09:55)
[2017-03-01] MEDS: CARVEDILOL 3.125 MG TABLET PO SCH ×2 (09:55→22:57)
[2017-03-01] MEDS: ASPIRIN 81 MG TABLET, CHEWABLE PO SCH (09:56)
[2017-03-01] MEDS: CHOLECALCIFEROL (D3) 1,000 UNIT TABLET PO SCH (09:56)
[2017-03-01] MEDS: PREGABALIN 25 MG CAPSULE PO SCH ×2 (09:56→22:58)
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
[2017-03-01] MEDS ORDERED: PEG 3350/NA SULF,BICARB,CL/KCL 4000 ML PO SCH (14:00)
[2017-03-01] MEDS ORDERED: PEG 3350/NA SULF,BICARB,CL/KCL 4000 ML PO PRN (15:01)
[2017-03-01] MEDS: INSULIN REG, HUMAN 100 UNIT/ML 3 ML VIAL (PYX) SUBCUT PRN (16:15)
--- NOTE | 2017-03-01 16:31 | PDOC PROGRESS REPORT ---
Subjective Progress Note for:: 03/01/17 Subjective:: Patient was seen by GI, she is scheduled for GI endoscopy tomorrow including EGD and colonoscopy. It seems that she is requiring BiPAP at night she probably sleep apnea, she will need a sleep study but is outpatient procedure. Physical Exam Vital Signs: Temp Pulse Resp BP Pulse Ox 97.3 F 88 22 H 127/58 H 93 03/01/17 12:55 03/01/17 14:00 03/01/17 12:55 03/01/17 12:55 03/01/17 12:55 Intake & Output 02/28/17 03/01/17 03/02/17 06:59 06:59 06:59 Intake Total 750 1330 476 Output Total 2400 1675 1150 Balance -2059 -244 -102 Weight 76.8 kg 77 kg General appearance: PRESENT: no acute distress Eye exam: PRESENT: PERRLA Neck exam: PRESENT: full ROM Respiratory exam: PRESENT: rhonchi Cardiovascular exam: PRESENT: RRR, +S1, +S2 Vascular exam: PRESENT: normal capillary refill GI/Abdominal exam: PRESENT: normal bowel sounds, soft Rectal exam: PRESENT: deferred Neurological exam: PRESENT: alert, awake, oriented to person, oriented to place , oriented to time, oriented to situation, CN II-XII grossly intact Psychiatric exam: PRESENT: appropriate affect, normal mood Skin exam: PRESENT: dry, intact, warm Results Laboratory Results: 02/27/17 05:33 03/01/17 05:45 03/01/17 05:45 Sodium 145.8 H Potassium 4.5 Chloride 103 Carbon Dioxide 30 Anion Gap 13 BUN 41 H Creatinine 1.59 H Est GFR ( Amer) 38 L Est GFR (Non-Af Amer) 32 L Glucose 151 H Calcium 9.7 Phosphorus 4.1 02/21/17 02/21/17 02/21/17 14:22 14:22 21:30 Creatine Kinase 44 41 CK-MB (CK-2) 1.99 Troponin I < 0.012 NT-Pro-B Natriuret Pep 1060 H 02/21/17 02/22/17 02/22/17 21:30 08:01 08:01 Creatine Kinase 36 CK-MB (CK-2) 2.01 1.78 Troponin I < 0.012 < 0.012 NT-Pro-B Natriuret Pep Impressions: Renal Ultrasound 02/21/17 00:00 IMPRESSION: NORMAL RENAL AND BLADDER ULTRASOUND. Thoracentesis Ultrasound 02/21/17 20:31 IMPRESSION: SUCCESSFUL THORACENTESIS AND 8 [place] LEFT CHEST TUBE PLACEMENT USING ULTRASOUND GUIDANCE. Chest CT 02/22/17 00:00 IMPRESSION: Bilateral pleural effusions left greater than right. Fluid over the anterior left lower chest appears loculated. Question loculations in the right pleural effusion posteriorly Head MRI 02/23/17 00:00 IMPRESSION: Negative for acute or sub-acute infarction. Left maxillary sinusitis. Chest X-Ray 02/26/17 00:00 IMPRESSION: CHF. No significant change. Assessment & Plan - Diagnosis (1) Hemothorax on left Is this a current diagnosis for this admission?: YesPlan: CT chest without contrast to be ordered (2) Anemia due to acute blood loss Is this a current diagnosis for this admission?: Yes (3) Diabetes mellitus type 2 in nonobese Is this a current diagnosis for this admission?: Yes (4) Hypotension Qualifiers: Hypotension type: other hypotension type Qualified Code(s): I95.89 - Other hypotension Is this a current diagnosis for this admission?: Yes (5) Diabetes mellitus with nephropathy Is this a current diagnosis for this admission?: Yes (6) Diarrhea Qualifiers: Diarrhea type: unspecified type Qualified Code(s): R19.7 - Diarrhea , unspecified Is this a current diagnosis for this admission?: Yes
[2017-03-01] MEDS: SIMVASTATIN 10 MG TABLET PO SCH (22:57)
[2017-03-01] MEDS: INSULIN GLARGINE,HUM.REC.ANLOG 300 UNIT/3 ML INSULN.PEN SUBCUT SCH (22:58)
[2017-03-02] MEDS: HYDRALAZINE HCL 50 MG TABLET PO SCH ×3 (05:14→23:19)
[2017-03-02] MEDS: ISOSORBIDE MONONITRATE 20 MG TABLET PO SCH ×3 (05:14→23:18)
[2017-03-02] MEDS: FUROSEMIDE 80 MG TABLET PO SCH (09:52)
[2017-03-02] MEDS: LANSOPRAZOLE 15 MG TAB.RAP.DR PO SCH (09:52)
[2017-03-02] MEDS: ASPIRIN 81 MG TABLET, CHEWABLE PO SCH (09:52)
[2017-03-02] MEDS: CHOLECALCIFEROL (D3) 1,000 UNIT TABLET PO SCH (09:52)
[2017-03-02] MEDS: BUDESONIDE/FORMOTEROL 160-4.5 MCG 60 PUFF/6 GM MDI IH SCH ×2 (09:53→23:17)
[2017-03-02] MEDS: PREGABALIN 25 MG CAPSULE PO SCH ×2 (09:55→23:19)
[2017-03-02] MEDS: CARVEDILOL 3.125 MG TABLET PO SCH ×2 (09:55→23:19)
[2017-03-02] MEDS ORDERED: PROPOFOL INJ 200 MG/20 ML VIAL IV ONE (12:23)
[2017-03-02] MEDS ORDERED: MEPERIDINE HCL/PF INJ 25 MG/1 ML DISP.SYRIN IV PRN (13:02)
[2017-03-02] MEDS ORDERED: PROMETHAZINE HCL INJ 25 MG/1 ML VIAL IV PRN ×2 (13:02)
[2017-03-02] MEDS ORDERED: MORPHINE SULFATE 10 MG/ML INJ IV PRN (13:02)
[2017-03-02] MEDS ORDERED: OXYCODONE-ACETAMINOPHEN 5-325 MG TABLET PO PRN ×2 (13:02)
[2017-03-02] MEDS ORDERED: FENTANYL CITRATE INJ/PF 100 MCG/2 ML AMPUL IV PRN ×3 (13:02)
[2017-03-02] MEDS ORDERED: DIPHENHYDRAMINE HCL 50 MG/ML VIAL IV PRN (13:02)
[2017-03-02] MEDS ORDERED: ONDANSETRON HCL INJ/PF 4 MG/2 ML SDV IV PRN (13:02)
--- NOTE | 2017-03-02 14:26 | Operative Report ---
Operative Report DATE OF SURGERY: 03/02/17 Operative Report: The risks, benefits and alternatives of the procedure including risks of bleeding, perforation requiring surgery are explained to the patient detail and informed consent is obtained. Patient is placed in the left lateral decubital position. Timeout is called. Propofol medication is provided. A rectal examination was done which did not reveal any masses, tears or fissures. An Olympus videoscope was inserted into the patient's rectum. The scope was then gradually advanced all the way to the cecum. The cecum was identified by the usual anatomical landmarks of the ileocecal valve as well as the appendiceal office. Photodocumentation is obtained. Scope was then sequentially pulled back creative rest segments of the colon including the ascending colon, hepatic flexure, transverse colon, splenic flexure, descending colon and finally into the rectosigmoid portions of the colon. Retroflexion maneuvers performed. The risks benefits and alternatives of the procedure explained to the patient in detail and informed consent is obtained that GIF Olympus video scope was inserted into the patient's mouth and hypopharynx the esophagus is identified intubated and insufflated the scope was then advanced through the esophagus stomach and duodenum retroflexion maneuver is done the esophagus stomach and first and second portions of the duodenum examined PREOPERATIVE DIAGNOSIS: Iron deficiency anemia POSTOPERATIVE DIAGNOSIS: Mild right-sided mucosal inflammation status post biopsy\internal hemorrhoids. Gastritis status post biopsy OPERATION: Colonoscopy with biopsy. EGD with biopsy SURGEON: CRISTOFER BHAKTA ANESTHESIA: LMAC TISSUE REMOVED OR ALTERED: Gastric mucosal specimens obtained. Right colon biopsy mucosal specimens obtained COMPLICATIONS: None. ESTIMATED BLOOD LOSS: none. INTRAOPERATIVE FINDINGS: As described above. PROCEDURE: Patient tolerated procedure well. No immediate postprocedure complications are noted. Patient sent back to her room in good condition. Resume her diet. Resume previous activity level Wait on biopsies Further recommendations to follow
[2017-03-02] MEDS ORDERED: LIDOCAINE 2% INJ-PF (20 MG/ML) 10 ML AMPUL ONE (14:42)
--- NOTE | 2017-03-02 19:49 | PDOC PROGRESS REPORT ---
Subjective Progress Note for:: 03/02/17 Subjective:: Patient underwent EGD and colonoscopy today. Gastritis was found. Patient claims that she still feels weak though. She is making adequate urine output. Physical Exam Vital Signs: Temp Pulse Resp BP Pulse Ox 97.8 F 87 20 116/52 L 92 03/02/17 16:51 03/02/17 16:51 03/02/17 16:51 03/02/17 16:51 03/02/17 19:13 Intake & Output 03/01/17 03/02/17 03/03/17 06:59 06:59 06:59 Intake Total 1330 5159 1129 Output Total 1675 3250 850 Balance -345 1909 279 Weight 76.5 kg Exam: General appearance: PRESENT: no acute distress, cooperative, well-developed, well-nourished Head exam: PRESENT: atraumatic, normocephalic Eye exam: PRESENT: conjunctiva pale, PERRLA. ABSENT: scleral icterus Neck exam: ABSENT: JVD Respiratory exam: PRESENT: Diminished breath sounds. ABSENT: crackles, rales, rhonchi, unlabored, wheezes Cardiovascular exam: PRESENT: Regular rate rhythm -+S1, +S2. ABSENT: diastolic murmur, systolic murmur GI/Abdominal exam: PRESENT: normal bowel sounds, soft. ABSENT: guarding, mass, tenderness Extremities exam: ABSENT: No edema Neurological exam: PRESENT: alert, awake, oriented to person, place and time. Skin exam: PRESENT: dry, warm, Results Laboratory Results: 02/27/17 05:33 03/01/17 05:45 03/01/17 05:45 PTH Intact 45 02/22/17 13:40 Pleural Fluid Viral Culture - Final 02/21/17 02/21/17 02/21/17 14:22 14:22 21:30 Creatine Kinase 44 41 CK-MB (CK-2) 1.99 Troponin I < 0.012 NT-Pro-B Natriuret Pep 1060 H 02/21/17 02/22/17 02/22/17 21:30 08:01 08:01 Creatine Kinase 36 CK-MB (CK-2) 2.01 1.78 Troponin I < 0.012 < 0.012 NT-Pro-B Natriuret Pep Impressions: Renal Ultrasound 02/21/17 00:00 IMPRESSION: NORMAL RENAL AND BLADDER ULTRASOUND. Thoracentesis Ultrasound 02/21/17 20:31 IMPRESSION: SUCCESSFUL THORACENTESIS AND 8 POLISH LEFT CHEST TUBE PLACEMENT USING ULTRASOUND GUIDANCE. Head MRI 02/23/17 00:00 IMPRESSION: Negative for acute or sub-acute infarction. Left maxillary sinusitis. Chest X-Ray 02/26/17 00:00 IMPRESSION: CHF. No significant change. Chest CT 03/01/17 00:00 IMPRESSION: Cardiomegaly with significant bilateral pleural effusions. Coronary atherosclerosis. Assessment & Plan - Diagnosis (1) Chronic kidney disease, stage III (moderate) Is this a current diagnosis for this admission?: YesPlan: This is secondary to diabetic nephropathy per history and per patient. Patient' s kidney function is actually stable since admission and even better yesterday. She has nonnephrotic range proteinuria. She is currently nonoliguric. We will get records from her previous non destructive evaluation manager in [place] to see what her baseline kidney function and's. Her previous non destructive evaluation manager is Dr. Pantoja with phone number [phone]. Records still unavailable. Phosphorus and PTH are both normal. (2) Diabetic nephropathy Qualifiers: Diabetes mellitus type: type 2 Qualified Code(s): E11.21 - Type 2 diabetes mellitus with diabetic nephropathy Is this a current diagnosis for this admission?: Yes (3) Anemia due to acute blood loss Is this a current diagnosis for this admission?: YesPlan: This is improved with blood transfusion. Patient also has underlying iron deficiency anemia and most likely anemia of chronic kidney disease. I gave her a dose of IV Feraheme. She probably needs to continue to take ferrous sulfate upon discharge. EGD and colonoscopy results were also done today. Gastritis was found. (4) Diabetes mellitus type 2 in nonobese Is this a current diagnosis for this admission?: Yes (5) Hemothorax on left Is this a current diagnosis for this admission?: Yes - Notes Notes: Continue current management. I will sign off at this point. - Time Time with patient: 15-25 minutes
--- NOTE | 2017-03-02 21:04 | PDOC PROGRESS REPORT ---
Subjective Progress Note for:: 03/02/17 Subjective:: Patient had EGD and colonoscopy done today, there was no significant finding on colonoscopy and EGD done today, the Sanford catheter to be discontinued and patient will be encouraged to urinate on her own Physical Exam Vital Signs: Temp Pulse Resp BP Pulse Ox 97.8 F 87 20 116/52 L 92 03/02/17 16:51 03/02/17 16:51 03/02/17 16:51 03/02/17 16:51 03/02/17 19:13 Intake & Output 03/01/17 03/02/17 03/03/17 06:59 06:59 06:59 Intake Total 1330 5159 1129 Output Total 1675 3250 850 Balance -345 1909 279 Weight 76.5 kg General appearance: PRESENT: no acute distress, well-developed, well-nourished Head exam: PRESENT: atraumatic, normocephalic Eye exam: PRESENT: conjunctiva pink, EOMI, PERRLA. ABSENT: scleral icterus Ear exam: PRESENT: normal external ear exam Mouth exam: PRESENT: moist, tongue midline Neck exam: PRESENT: full ROM Respiratory exam: PRESENT: decreased breath sounds Cardiovascular exam: PRESENT: RRR, +S1, +S2 Vascular exam: PRESENT: normal capillary refill GI/Abdominal exam: PRESENT: normal bowel sounds, soft Rectal exam: PRESENT: deferred Neurological exam: PRESENT: alert, awake, oriented to person, oriented to place , oriented to time, oriented to situation, CN II-XII grossly intact Psychiatric exam: PRESENT: appropriate affect, normal mood Skin exam: PRESENT: dry, intact, warm Results Laboratory Results: 02/27/17 05:33 03/01/17 05:45 03/01/17 05:45 PTH Intact 45 02/22/17 13:40 Pleural Fluid Viral Culture - Final 02/21/17 02/21/17 02/21/17 14:22 14:22 21:30 Creatine Kinase 44 41 CK-MB (CK-2) 1.99 Troponin I < 0.012 NT-Pro-B Natriuret Pep 1060 H 02/21/17 02/22/17 02/22/17 21:30 08:01 08:01 Creatine Kinase 36 CK-MB (CK-2) 2.01 1.78 Troponin I < 0.012 < 0.012 NT-Pro-B Natriuret Pep Impressions: Renal Ultrasound 02/21/17 00:00 IMPRESSION: NORMAL RENAL AND BLADDER ULTRASOUND. Thoracentesis Ultrasound 02/21/17 20:31 IMPRESSION: SUCCESSFUL THORACENTESIS AND 8 KAZAKH LEFT CHEST TUBE PLACEMENT USING ULTRASOUND GUIDANCE. Head MRI 02/23/17 00:00 IMPRESSION: Negative for acute or sub-acute infarction. Left maxillary sinusitis. Chest X-Ray 02/26/17 00:00 IMPRESSION: CHF. No significant change. Chest CT 03/01/17 00:00 IMPRESSION: Cardiomegaly with significant bilateral pleural effusions. Coronary atherosclerosis. Assessment & Plan - Diagnosis (1) Hemothorax on left Is this a current diagnosis for this admission?: Yes (2) Anemia due to acute blood loss Is this a current diagnosis for this admission?: Yes (3) Diabetes mellitus type 2 in nonobese Is this a current diagnosis for this admission?: Yes (4) Hypotension Qualifiers: Hypotension type: other hypotension type Qualified Code(s): I95.89 - Other hypotension Is this a current diagnosis for this admission?: Yes (5) Diabetes mellitus with nephropathy Is this a current diagnosis for this admission?: Yes (6) Diarrhea Qualifiers: Diarrhea type: unspecified type Qualified Code(s): R19.7 - Diarrhea , unspecified Is this a current diagnosis for this admission?: Yes
[2017-03-02] MEDS: SIMVASTATIN 10 MG TABLET PO SCH (23:20)
[2017-03-03] MEDS: INSULIN GLARGINE,HUM.REC.ANLOG 300 UNIT/3 ML INSULN.PEN SUBCUT SCH ×2 (00:14→22:15)
[2017-03-03] MEDS: HYDRALAZINE HCL 50 MG TABLET PO SCH ×3 (06:27→21:55)
[2017-03-03] MEDS: ISOSORBIDE MONONITRATE 20 MG TABLET PO SCH ×3 (06:27→21:55)
[2017-03-03] MEDS: LANSOPRAZOLE 15 MG TAB.RAP.DR PO SCH (07:43)
--- NOTE | 2017-03-03 08:43 | PDOC PROGRESS REPORT ---
Subjective Progress Note for:: 03/03/17 Subjective:: patient underwent GI procedures under Propofol sedation she tolerated well no evidence of any bleeding lesion mild non specific gastritis and right side colon noted biopsies are obtained results are pending no significant overnight issues denies any abdominal pain there is no rectal bleeding patient may need hematology work up for her anemia will wait on biopsies resume normal diet Physical Exam Vital Signs: Temp Pulse Resp BP Pulse Ox 98.3 F 92 16 119/50 L 97 03/03/17 07:22 03/03/17 07:22 03/03/17 07:22 03/03/17 07:22 03/03/17 07:22 Intake & Output 03/02/17 03/03/17 03/04/17 06:59 06:59 06:59 Intake Total 5159 1449 Output Total 3250 1550 Balance 1909 -101 Weight 76.5 kg 76 kg General appearance: PRESENT: no acute distress, well-developed, well-nourished Head exam: PRESENT: atraumatic, normocephalic Eye exam: PRESENT: EOMI, PERRLA. ABSENT: scleral icterus Mouth exam: PRESENT: moist Throat exam: ABSENT: tonsillar exudate, tonsillogmegaly Neck exam: ABSENT: meningismus, tenderness, thyromegaly Respiratory exam: PRESENT: symmetrical. ABSENT: stridor Cardiovascular exam: PRESENT: RRR, +S1, +S2. ABSENT: clicks, rubs Pulses: PRESENT: normal carotid pulses GI/Abdominal exam: PRESENT: soft. ABSENT: ascites, Naik's sign, rebound, rigid Extremities exam: ABSENT: joint swelling Musculoskeletal exam: PRESENT: full ROM Neurological exam: PRESENT: oriented to time, oriented to situation, reflexes normal, CN II-XII grossly intact Psychiatric exam: PRESENT: appropriate affect Skin exam: PRESENT: normal color. ABSENT: cyanosis, erythema, jaundice, mottled , vesicles Results Laboratory Results: 02/27/17 05:33 03/01/17 05:45 03/01/17 05:45 PTH Intact 45 02/22/17 13:40 Pleural Fluid Viral Culture - Final 02/21/17 02/21/17 02/21/17 14:22 14:22 21:30 Creatine Kinase 44 41 CK-MB (CK-2) 1.99 Troponin I < 0.012 NT-Pro-B Natriuret Pep 1060 H 02/21/17 02/22/17 02/22/17 21:30 08:01 08:01 Creatine Kinase 36 CK-MB (CK-2) 2.01 1.78 Troponin I < 0.012 < 0.012 NT-Pro-B Natriuret Pep Impressions: Renal Ultrasound 02/21/17 00:00 IMPRESSION: NORMAL RENAL AND BLADDER ULTRASOUND. Thoracentesis Ultrasound 02/21/17 20:31 IMPRESSION: SUCCESSFUL THORACENTESIS AND 8 KYRGYZ LEFT CHEST TUBE PLACEMENT USING ULTRASOUND GUIDANCE. Head MRI 02/23/17 00:00 IMPRESSION: Negative for acute or sub-acute infarction. Left maxillary sinusitis. Chest X-Ray 02/26/17 00:00 IMPRESSION: CHF. No significant change. Chest CT 03/01/17 00:00 IMPRESSION: Cardiomegaly with significant bilateral pleural effusions. Coronary atherosclerosis. Assessment & Plan - Diagnosis (1) Anemia due to acute blood loss Is this a current diagnosis for this admission?: YesPlan: no evidence of GI blood loss random biopsies obtained to check for possible malabsorptive issues will wait on biopsies will follow up as needed resume diet further recommendations to follow - Time Time Spent with patient: 15-24 minutes
[2017-03-03] MEDS: FUROSEMIDE 80 MG TABLET PO SCH (09:17)
[2017-03-03] MEDS: CHOLECALCIFEROL (D3) 1,000 UNIT TABLET PO SCH (09:17)
[2017-03-03] MEDS: ASPIRIN 81 MG TABLET, CHEWABLE PO SCH (09:17)
[2017-03-03] MEDS: PREGABALIN 25 MG CAPSULE PO SCH ×2 (09:18→21:55)
[2017-03-03] MEDS: BUDESONIDE/FORMOTEROL 160-4.5 MCG 60 PUFF/6 GM MDI IH SCH ×2 (09:18→21:54)
[2017-03-03] MEDS: CARVEDILOL 3.125 MG TABLET PO SCH ×2 (09:18→21:55)
[2017-03-03 13:46] LABS: ABSOLUTE BASOPHILS # (AUTO) 0.1 10^3/uL (0.0-0.2); ABSOLUTE EOSINOPHILS # (AUTO) 0.3 10^3/uL (0.0-0.6); ABSOLUTE LYMPHOCYTES (AUTO) 2.5 10^3/uL (0.5-4.7); ABSOLUTE MONOCYTES (AUTO) 0.9 10^3/uL (0.1-1.4); ABSOLUTE NEUT (AUTO) 5.2 10^3/uL (1.7-8.2); BASOPHILS % (AUTO) 0.6 % (0-2); EOSINOPHILS % (AUTO) 3.6 % (0-6); HEMATOCRIT 31.1 % (36.0-47.0); HEMOGLOBIN 9.8 g/dL (12.0-15.5); HGB HCT DIFFERENCE -1.7; LYMPHOCYTES % (AUTO) 28.2 % (13-45); MEAN CORPUSCULAR HGB CONC 31.4 g/dL (32.0-36.0); MEAN CORPUSCULAR VOLUME 76 fl (80-97); MONOCYTES % (AUTO) 9.7 % (3-13); RED BLOOD COUNT 4.07 10^6/uL (3.72-5.28); RED CELL DISTRIBUTION WIDTH 20.2 % (11.5-14.0); SEGMENTED NEUTROPHILS % (AUTO) 57.9 % (42-78); WHITE BLOOD COUNT 8.9 10^3/uL (4.0-10.5)
[2017-03-03 13:58] LABS: ALANINE AMINOTRANSFERASE 25 U/L (9-52); ALBUMIN 2.5 g/dL (3.5-5.0); ALKALINE PHOSPHATASE 131 U/L (38-126); ANION GAP 10 (5-19); ASPARTATE AMINO TRANSFERASE 22 U/L (14-36); BILIRUBIN,DIRECT 0.2 mg/dL (0.0-0.4); BILIRUBIN,TOTAL 0.4 mg/dL (0.2-1.3); BLOOD UREA NITROGEN 30 mg/dL (7-20); CALCIUM 9.1 mg/dL (8.4-10.2); CARBON DIOXIDE 30 mmol/L (22-30); CHLORIDE 102 mmol/L (98-107); CREATININE RESULT 1.58 mg/dL (0.52-1.25); GLUCOSE 239 mg/dL (75-110); POTASSIUM 4.1 mmol/L (3.6-5.0); TOTAL PROTEIN 5.7 g/dL (6.3-8.2)
[2017-03-03] MEDS ORDERED: FUROSEMIDE INJ/PF 40 MG/4 ML SDV IV ONE (20:06)
--- NOTE | 2017-03-03 20:06 | PDOC PROGRESS REPORT ---
Subjective Progress Note for:: 03/03/17 Subjective:: Patient was seen by the bedside sitting she is alert oriented she has no new complaints Physical Exam Vital Signs: Temp Pulse Resp BP Pulse Ox 98.2 F 84 15 117/49 L 98 03/03/17 11:14 03/03/17 19:25 03/03/17 16:19 03/03/17 11:14 03/03/17 16:19 Intake & Output 03/02/17 03/03/17 03/04/17 06:59 06:59 06:59 Intake Total 5159 1449 995 Output Total 3250 1550 Balance 1909 -101 995 Weight 76.5 kg 76 kg General appearance: PRESENT: no acute distress, well-developed, well-nourished Head exam: PRESENT: atraumatic, normocephalic Eye exam: PRESENT: conjunctiva pink, EOMI, PERRLA. ABSENT: scleral icterus Ear exam: PRESENT: normal external ear exam Mouth exam: PRESENT: moist, tongue midline Neck exam: PRESENT: full ROM. ABSENT: carotid bruit, JVD, lymphadenopathy, thyromegaly Respiratory exam: PRESENT: decreased breath sounds Cardiovascular exam: PRESENT: RRR, +S1, +S2 Vascular exam: PRESENT: normal capillary refill GI/Abdominal exam: PRESENT: normal bowel sounds, soft Rectal exam: PRESENT: deferred Neurological exam: PRESENT: alert, awake, oriented to person, oriented to place , oriented to time, oriented to situation, CN II-XII grossly intact. ABSENT: motor sensory deficit Psychiatric exam: PRESENT: appropriate affect, normal mood Skin exam: PRESENT: dry, intact, warm Results Laboratory Results: 03/03/17 13:36 03/03/17 13:36 03/03/17 03/03/17 13:36 13:36 WBC 8.9 RBC 4.07 Hgb 9.8 L Hct 31.1 L MCV 76 L MCH 24.0 L MCHC 31.4 L RDW 20.2 H Plt Count 174 Seg Neutrophils % 57.9 Lymphocytes % 28.2 Monocytes % 9.7 Eosinophils % 3.6 Basophils % 0.6 Absolute Neutrophils 5.2 Absolute Lymphocytes 2.5 Absolute Monocytes 0.9 Absolute Eosinophils 0.3 Absolute Basophils 0.1 Sodium 142.0 Potassium 4.1 Chloride 102 Carbon Dioxide 30 Anion Gap 10 BUN 30 H Creatinine 1.58 H Est GFR ( Amer) 39 L Est GFR (Non-Af Amer) 32 L Glucose 239 H Calcium 9.1 Total Bilirubin 0.4 AST 22 ALT 25 Alkaline Phosphatase 131 H Total Protein 5.7 L Albumin 2.5 L 02/21/17 02/21/17 02/21/17 14:22 14:22 21:30 Creatine Kinase 44 41 CK-MB (CK-2) 1.99 Troponin I < 0.012 NT-Pro-B Natriuret Pep 1060 H 02/21/17 02/22/17 02/22/17 21:30 08:01 08:01 Creatine Kinase 36 CK-MB (CK-2) 2.01 1.78 Troponin I < 0.012 < 0.012 NT-Pro-B Natriuret Pep Impressions: Renal Ultrasound 02/21/17 00:00 IMPRESSION: NORMAL RENAL AND BLADDER ULTRASOUND. Thoracentesis Ultrasound 02/21/17 20:31 IMPRESSION: SUCCESSFUL THORACENTESIS AND 8 SERBIAN LEFT CHEST TUBE PLACEMENT USING ULTRASOUND GUIDANCE. Head MRI 02/23/17 00:00 IMPRESSION: Negative for acute or sub-acute infarction. Left maxillary sinusitis. Chest X-Ray 02/26/17 00:00 IMPRESSION: CHF. No significant change. Chest CT 03/01/17 00:00 IMPRESSION: Cardiomegaly with significant bilateral pleural effusions. Coronary atherosclerosis. Assessment & Plan - Diagnosis (1) Hemothorax on left Is this a current diagnosis for this admission?: Yes (2) Anemia due to acute blood loss Is this a current diagnosis for this admission?: Yes (3) Diabetes mellitus type 2 in nonobese Is this a current diagnosis for this admission?: Yes (4) Hypotension Qualifiers: Hypotension type: other hypotension type Qualified Code(s): I95.89 - Other hypotension Is this a current diagnosis for this admission?: Yes (5) Diabetes mellitus with nephropathy Is this a current diagnosis for this admission?: Yes (6) Diarrhea Qualifiers: Diarrhea type: unspecified type Qualified Code(s): R19.7 - Diarrhea , unspecified Is this a current diagnosis for this admission?: Yes - Plan Summary Plan Summary: She was given a dose of Lasix 80 mg IV because of pleural effusion
[2017-03-03] MEDS ORDERED: FUROSEMIDE INJ/PF 100 MG/10 ML SDV IV ONE (20:30)
[2017-03-03] MEDS: SIMVASTATIN 10 MG TABLET PO SCH (21:55)
[2017-03-03] MEDS: INSULIN REG, HUMAN 100 UNIT/ML 3 ML VIAL (PYX) SUBCUT PRN (22:15)
[2017-03-04] MEDS: ISOSORBIDE MONONITRATE 20 MG TABLET PO SCH ×2 (05:36→15:29)
[2017-03-04] MEDS: HYDRALAZINE HCL 50 MG TABLET PO SCH ×2 (05:36→15:29)
[2017-03-04] MEDS: ASPIRIN 81 MG TABLET, CHEWABLE PO SCH (12:09)
[2017-03-04] MEDS: CHOLECALCIFEROL (D3) 1,000 UNIT TABLET PO SCH (12:09)
[2017-03-04] MEDS: LANSOPRAZOLE 15 MG TAB.RAP.DR PO SCH (12:09)
[2017-03-04] MEDS: FUROSEMIDE 80 MG TABLET PO SCH (12:10)
[2017-03-04] MEDS: CARVEDILOL 3.125 MG TABLET PO SCH (12:10)
[2017-03-04] MEDS: INSULIN REG, HUMAN 100 UNIT/ML 3 ML VIAL (PYX) SUBCUT PRN (12:20)
[2017-03-04] MEDS: BUDESONIDE/FORMOTEROL 160-4.5 MCG 60 PUFF/6 GM MDI IH SCH (12:25)
[2017-03-04] MEDS: PREGABALIN 25 MG CAPSULE PO SCH (15:29)
--- NOTE | 2017-03-04 16:21 | PDOC DISCHARGE SUMMARY ---
General - Admit/Disc Date/PCP Admission Date/Primary Care Provider: 02/21/17 12:22 Discharge Date: 03/04/17 - Discharge Diagnosis (1) Hypotension Is this a current diagnosis for this admission?: Yes (2) Hemothorax on left Is this a current diagnosis for this admission?: Yes (3) Anemia due to acute blood loss Is this a current diagnosis for this admission?: Yes (4) Diabetes mellitus type 2 in nonobese Is this a current diagnosis for this admission?: Yes (5) Diabetes mellitus with nephropathy Is this a current diagnosis for this admission?: Yes (6) Diarrhea Is this a current diagnosis for this admission?: Yes (7) Iron deficiency anemia due to chronic blood loss Is this a current diagnosis for this admission?: Yes (8) Chronic kidney disease, stage III (moderate) Is this a current diagnosis for this admission?: Yes (9) Acute hypercapnic respiratory failure Is this a current diagnosis for this admission?: Yes - Additional Information Resuscitation Status: Full Code Discharge Activity: Activity As Tolerated Home Medications: Cholecalciferol (Vitamin D3) [D3-2000] 2,000 unit PO DAILY 02/21/17 Aspirin [Aspirin 81 mg Chewable Tablet] 81 mg PO DAILY #0 tab.chew 03/04/17 Budesonide/Formoterol Fumarate [Symbicort HFA 160-4.5 mcg Inhaler 6 gm] 2 puff IH Q12 #1 inhaler 03/04/17 Carvedilol [Coreg 3.125 mg Tablet] 3.125 mg PO Q12 #180 tablet 03/04/17 Ergocalciferol (Vitamin D2) [Drisdol 50,000 unit (1.25MG) Capsule] 50,000 units PO Q7MP PRN #12 capsule 03/04/17 Furosemide [Lasix] 80 mg PO DAILY #90 tablet 03/04/17 Hydralazine HCl 50 mg PO TID #90 tablet 03/04/17 Insulin Glargine,Hum.rec.anlog [Lantus Solostar] 26 unit SQ QHS #1 ml 03/04/17 Isosorbide Mononitrate [Ismo 20 mg Tablet] 20 mg PO TID #90 tablet 03/04/17 Linagliptin [Tradjenta] 5 mg PO DAILY #90 tablet 03/04/17 Omeprazole 20 mg PO DAILY #30 capsule. 03/04/17 Potassium Chloride [Klor-Con 10 Meq Tablet.sa] 10 meq PO Q12 #60 tablet.sa 03/04 Pregabalin [Lyrica 25 mg Capsule] 25 mg PO BID #180 capsule 03/04/17 Simvastatin 20 mg PO QHS #90 tablet 03/04/17 History of Present Illness History of Present Illness: CAITLIN YAO is a 76 year old female she came to the office for the first time to establish with us, she just relocated from [facility] in the office she was evaluated the blood pressure that was recorded was 76/44, that was electronic blood pressure recorded, the Roderick blood pressure was 60 systolic, and also on examination and on auscultation of the chest that was diminished air entry on the left lung field when compared to the right side because of for these findings she was admitted directly from the office into the hospital. The hemogram revealed hemoglobin of 6.8, she denies any passage of black tarry stool or any bloody stool but patient's daughter stated that about 2 weeks ago she was hospitalized in [facility] because of severe epistasis and she was managed with packing. She was not transfused at the time though so I assume that she probably was not anemic. Family gave history of diabetes with complication including nephropathy the also stated that she had cardiomyopathy I am not sure of details for this conditions have no records to review from our transferring state of [place]. Because of the history of cardiomyopathy a 2D echo was done, showed a large pleural effusion but the ejection fraction was preserved chest x-ray that was done also confirmed a left pleural effusion. The initial chest x-ray was done suggest fracture ribs on there was a concern that this could be hematoma but there is no history of fall or injury or trauma to the chest. CT chest without contrast was ordered, he showed on the left side a large pleural effusion with water density the pleural fluid appears loculated in the anterior of the left lower hemithorax there is also a moderate- sized pleural effusion on the right side. When I reviewed her medication she was on Xarelto but the indication is not clear, when she left [place] the Xarelto was discontinued because according to daughter there is no more indication for is use.. The 12-lead EKG shows sinus rhythm there is no acute ST T-wave segment changes Hospital Course Hospital Course: Patient came to the office for the first time to establish with us, she was found to have blood pressure of 60 systolic, she was orthostatic, she was admitted directly from the office into the hospital because of the severe low blood pressure, 2D echo was done today she was admitted and also hemogram was done, the hemogram show hemoglobin of 6. 2D echo showed severe pleural effusion the ejection fraction of left ventricle was 45% to 50%, there was moderate mitral valve regurgitation. She was transfused with up to 2 units of packed red blood cells and she underwent CT-guided thoracostomy, a chest tube was inserted and copious amount of hemothorax was evacuated from the pleural space. There is no history of trauma, fall or injury the cytology of the pleural fluid was negative for malignant cells, PPD was planted was negative the etiology of the hemothorax is not clear. She was seen by nephrology, Dr. Teran and also a GI Dr. Fuentes she underwent EGD and colonoscopy on this admission this was done on [id number] colonoscopy showed a mild right-sided mucosal inflammation and the EGD showed gastritis there was no mass lesion or any AV malformation seen on the colonoscopy and EGD. She also had episode of hypercapnic respiratory failure she transiently required BiPAP to support her breathing there was no pneumonia the hypotension etiology is thought to be due to blood loss, due to severity motorized there was no evidence of GI blood loss. Kidney ultrasound was done because of the elevated BUN/creatinine, the kidney ultrasound did not show any hydronephrosis, and the kidney sizes were normal no suggestion of nephrosclerosis on the basis of the kidney size. Patient intent to return back to [place] initial plan was that she was going to relocate to this part of the country but it seemed that she is moving back to [place] her home states Physical Exam Vital Signs: Temp Pulse Resp BP Pulse Ox 97.4 F 83 18 118/56 L 97 03/04/17 08:17 03/04/17 14:00 03/04/17 08:17 03/04/17 12:06 03/04/17 12:06 Intake & Output 03/03/17 03/04/17 03/05/17 06:59 06:59 06:59 Intake Total 1449 1345 598 Output Total 1550 Balance -101 1345 598 Weight 76 kg General appearance: PRESENT: no acute distress, well-developed, well-nourished Head exam: PRESENT: atraumatic, normocephalic Eye exam: PRESENT: conjunctiva pink, EOMI, PERRLA Ear exam: PRESENT: normal external ear exam Mouth exam: PRESENT: moist, tongue midline Neck exam: PRESENT: full ROM Respiratory exam: PRESENT: clear to auscultation kamar Cardiovascular exam: PRESENT: RRR, +S1, +S2 Pulses: PRESENT: normal dorsalis pedis pul, +2 pedal pulses bilateral Vascular exam: PRESENT: normal capillary refill GI/Abdominal exam: PRESENT: normal bowel sounds, soft Rectal exam: PRESENT: deferred Neurological exam: PRESENT: alert, awake, oriented to person, oriented to place , oriented to time, oriented to situation, CN II-XII grossly intact Psychiatric exam: PRESENT: appropriate affect, normal mood Skin exam: PRESENT: dry, intact, warm Results Laboratory Results: 03/03/17 13:36 03/03/17 13:36 02/21/17 02/21/17 02/21/17 14:22 14:22 21:30 Creatine Kinase 44 41 CK-MB (CK-2) 1.99 Troponin I < 0.012 NT-Pro-B Natriuret Pep 1060 H 02/21/17 02/22/17 02/22/17 21:30 08:01 08:01 Creatine Kinase 36 CK-MB (CK-2) 2.01 1.78 Troponin I < 0.012 < 0.012 NT-Pro-B Natriuret Pep Impressions: Renal Ultrasound 02/21/17 00:00 IMPRESSION: NORMAL RENAL AND BLADDER ULTRASOUND. Thoracentesis Ultrasound 02/21/17 20:31 IMPRESSION: SUCCESSFUL THORACENTESIS AND 8 ARMENIAN LEFT CHEST TUBE PLACEMENT USING ULTRASOUND GUIDANCE. Head MRI 02/23/17 00:00 IMPRESSION: Negative for acute or sub-acute infarction. Left maxillary sinusitis. Chest X-Ray 02/26/17 00:00 IMPRESSION: CHF. No significant change. Chest CT 03/01/17 00:00 IMPRESSION: Cardiomegaly with significant bilateral pleural effusions. Coronary atherosclerosis.
[2017-03-04 17:35] VITALS: BP 133/56
--- NOTE | 2017-03-05 15:40 | PDOC PROGRESS REPORT ---
Subjective Progress Note for:: 02/27/17 Subjective:: c/o fatigue weakness Physical Exam Vital Signs: Temp Pulse Resp BP Pulse Ox 98.6 F 87 16 123/58 L 100 02/28/17 07:27 02/28/17 11:27 02/28/17 11:27 02/28/17 11:27 02/28/17 11:27 Intake & Output 02/27/17 02/28/17 03/01/17 06:59 06:59 06:59 Intake Total 388 750 360 Output Total 2200 2400 600 Balance -1812 -1650 -240 Weight 76.8 kg General appearance: PRESENT: no acute distress, disheveled, thin, well-developed Head exam: PRESENT: atraumatic, normocephalic Eye exam: PRESENT: conjunctiva pale Mouth exam: PRESENT: dry mucosa, neck supple Teeth exam: PRESENT: poor dentation Neck exam: ABSENT: carotid bruit, JVD, lymphadenopathy, thyromegaly Respiratory exam: PRESENT: decreased breath sounds, prolonged expiratory phas, rales, rhonchi, symmetrical, wheezes Cardiovascular exam: PRESENT: +S1, +S2 Pulses: PRESENT: normal radial pulses GI/Abdominal exam: PRESENT: normal bowel sounds, soft. ABSENT: distended, guarding, mass, organolmegaly, rebound, tenderness Rectal exam: PRESENT: deferred Musculoskeletal exam: PRESENT: normal inspection Neurological exam: PRESENT: awake Skin exam: PRESENT: dry, warm Results Laboratory Results: 02/27/17 05:33 02/28/17 05:13 02/28/17 05:13 Sodium 144.0 Potassium 4.7 Chloride 100 Carbon Dioxide 34 H Anion Gap 10 BUN 47 H Creatinine 1.96 H Est GFR ( Amer) 30 L Est GFR (Non-Af Amer) 25 L Glucose 258 H Calcium 9.4 02/22/17 13:40 Pleural Fluid Fungal Smear - Final 02/22/17 13:40 Pleural Fluid Fungal Smear - Final 02/22/17 13:40 Pleural Fluid Fungal Smear - Final 02/21/17 02/21/17 02/21/17 14:22 14:22 21:30 Creatine Kinase 44 41 CK-MB (CK-2) 1.99 Troponin I < 0.012 NT-Pro-B Natriuret Pep 1060 H 02/21/17 02/22/17 02/22/17 21:30 08:01 08:01 Creatine Kinase 36 CK-MB (CK-2) 2.01 1.78 Troponin I < 0.012 < 0.012 NT-Pro-B Natriuret Pep Impressions: Renal Ultrasound 02/21/17 00:00 IMPRESSION: NORMAL RENAL AND BLADDER ULTRASOUND. Thoracentesis Ultrasound 02/21/17 20:31 IMPRESSION: SUCCESSFUL THORACENTESIS AND 8 [place] LEFT CHEST TUBE PLACEMENT USING ULTRASOUND GUIDANCE. Chest CT 02/22/17 00:00 IMPRESSION: Bilateral pleural effusions left greater than right. Fluid over the anterior left lower chest appears loculated. Question loculations in the right pleural effusion posteriorly Head MRI 02/23/17 00:00 IMPRESSION: Negative for acute or sub-acute infarction. Left maxillary sinusitis. Chest X-Ray 02/26/17 00:00 IMPRESSION: CHF. No significant change. Assessment & Plan - Diagnosis (1) Retinopathy due to secondary diabetes mellitus Is this a current diagnosis for this admission?: Yes (2) Weakness generalized Is this a current diagnosis for this admission?: Yes (3) Anemia due to acute blood loss Is this a current diagnosis for this admission?: Yes (4) Diabetes mellitus type 2 in nonobese Is this a current diagnosis for this admission?: Yes (5) Hemothorax on left Is this a current diagnosis for this admission?: Yes
--- NOTE | 2017-03-05 15:43 | PDOC PROGRESS REPORT ---
Subjective Progress Note for:: 02/28/17 Subjective:: c/o fatigue weakness Physical Exam Vital Signs: Temp Pulse Resp BP Pulse Ox 98.6 F 87 16 123/58 L 100 02/28/17 07:27 02/28/17 11:27 02/28/17 11:27 02/28/17 11:27 02/28/17 11:27 Intake & Output 02/27/17 02/28/17 03/01/17 06:59 06:59 06:59 Intake Total 388 750 360 Output Total 2200 2400 600 Balance -1812 -1650 -240 Weight 76.8 kg General appearance: PRESENT: no acute distress, cooperative, disheveled Head exam: PRESENT: atraumatic, normocephalic Eye exam: PRESENT: conjunctiva pale, EOMI Mouth exam: PRESENT: dry mucosa, neck supple Neck exam: ABSENT: carotid bruit, JVD, lymphadenopathy, thyromegaly Respiratory exam: PRESENT: decreased breath sounds, prolonged expiratory phas, rales, rhonchi, unlabored Cardiovascular exam: PRESENT: +S1, +S2 Pulses: PRESENT: normal radial pulses GI/Abdominal exam: PRESENT: normal bowel sounds, soft. ABSENT: distended, guarding, mass, organolmegaly, rebound, tenderness Rectal exam: PRESENT: deferred Musculoskeletal exam: PRESENT: normal inspection Neurological exam: PRESENT: awake Skin exam: PRESENT: dry Results Laboratory Results: 02/27/17 05:33 02/28/17 05:13 02/28/17 05:13 Sodium 144.0 Potassium 4.7 Chloride 100 Carbon Dioxide 34 H Anion Gap 10 BUN 47 H Creatinine 1.96 H Est GFR ( Amer) 30 L Est GFR (Non-Af Amer) 25 L Glucose 258 H Calcium 9.4 02/22/17 13:40 Pleural Fluid Fungal Smear - Final 02/22/17 13:40 Pleural Fluid Fungal Smear - Final 02/22/17 13:40 Pleural Fluid Fungal Smear - Final 02/21/17 02/21/17 02/21/17 14:22 14:22 21:30 Creatine Kinase 44 41 CK-MB (CK-2) 1.99 Troponin I < 0.012 NT-Pro-B Natriuret Pep 1060 H 02/21/17 02/22/17 02/22/17 21:30 08:01 08:01 Creatine Kinase 36 CK-MB (CK-2) 2.01 1.78 Troponin I < 0.012 < 0.012 NT-Pro-B Natriuret Pep Impressions: Renal Ultrasound 02/21/17 00:00 IMPRESSION: NORMAL RENAL AND BLADDER ULTRASOUND. Thoracentesis Ultrasound 02/21/17 20:31 IMPRESSION: SUCCESSFUL THORACENTESIS AND 8 [place]IGERI[place] LEFT CHEST TUBE PLACEMENT USING ULTRASOUND GUIDANCE. Chest CT 02/22/17 00:00 IMPRESSION: Bilateral pleural effusions left greater than right. Fluid over the anterior left lower chest appears loculated. Question loculations in the right pleural effusion posteriorly Head MRI 02/23/17 00:00 IMPRESSION: Negative for acute or sub-acute infarction. Left maxillary sinusitis. Chest X-Ray 02/26/17 00:00 IMPRESSION: CHF. No significant change. Assessment & Plan - Diagnosis (1) Retinopathy due to secondary diabetes mellitus Is this a current diagnosis for this admission?: Yes (2) Weakness generalized Is this a current diagnosis for this admission?: Yes (3) Anemia due to acute blood loss Is this a current diagnosis for this admission?: Yes (4) Diabetes mellitus type 2 in nonobese Is this a current diagnosis for this admission?: Yes (5) Hemothorax on left Is this a current diagnosis for this admission?: Yes - Plan Summary Plan Summary: expressed plans to return home
== END 2017-03-04 17:43 | disposition home or self-care (01) | DRG 186 ==
LOC: OBSVTOIN 12:22 → 3S 12:22
PROVIDERS: ADMIT Internal Medicine; ATTEND Internal Medicine
PROC: 30233P1 Transfusion of Nonautologous Frozen Red Cells into Peripheral Vein, Percutaneous Approach (ICD-10-PCS; 2017-02-21)
PROC: 0W9B30Z Drainage of Left Pleural Cavity with Drainage Device, Percutaneous Approach (ICD-10-PCS; principal; 2017-02-22)
PROC: 30233P1 Transfusion of Nonautologous Frozen Red Cells into Peripheral Vein, Percutaneous Approach (ICD-10-PCS; 2017-02-22)
PROC: 5A09557 Assistance with Respiratory Ventilation, Greater than 96 Consecutive Hours, Continuous Positive Airway Pressure (ICD-10-PCS; 2017-02-25)
PROC: 0DB68ZX Excision of Stomach, Via Natural or Artificial Opening Endoscopic, Diagnostic (ICD-10-PCS; 2017-03-02)
PROC: 0DBF8ZX Excision of Right Large Intestine, Via Natural or Artificial Opening Endoscopic, Diagnostic (ICD-10-PCS; 2017-03-02 12:30)
DX: J94.2 Hemothorax (principal); J96.02 Acute respiratory failure with hypercapnia; I42.9 Cardiomyopathy, unspecified; I50.22 Chronic systolic (congestive) heart failure; D62 Acute posthemorrhagic anemia; E11.22 Type 2 diabetes mellitus with diabetic chronic kidney disease; E11.21 Type 2 diabetes mellitus with diabetic nephropathy; N18.3 Chronic kidney disease, stage 3 (moderate); I25.2 Old myocardial infarction; J45.909 Unspecified asthma, uncomplicated; D63.1 Anemia in chronic kidney disease; E11.319 Type 2 diabetes mellitus with unspecified diabetic retinopathy without macular edema; J91.8 Pleural effusion in other conditions classified elsewhere; K64.8 Other hemorrhoids; K29.70 Gastritis, unspecified, without bleeding; R19.7 Diarrhea, unspecified; I95.89 Other hypotension; Z90.49 Acquired absence of other specified parts of digestive tract; Z90.81 Acquired absence of spleen; Z84.1 Family history of disorders of kidney and ureter; Z84.89 Family history of other specified conditions; Z80.1 Family history of malignant neoplasm of trachea, bronchus and lung; Z82.49 Family history of ischemic heart disease and other diseases of the circulatory system; Z79.4 Long term (current) use of insulin; Z79.82 Long term (current) use of aspirin; Z79.899 Other long term (current) drug therapy
CPT/HCPCS: 00740; 32555; 36415; 36430; 36600; 43239; 45380; 70551; 71010; 71020; 71250; 76770; 80048; 80053; 80076; 82140; 82150; 82272; 82550; 82553; 82570; 82607; 82728; 82746; 82803; 82945; 82962; 83036; 83540; 83550; 83880; 83970; 84100; 84156; 84439; 84443; 84466; 84484; 85025; 85027; 85045; 85610; 85730; 86850; 86900; 86901; 86920; 87015; 87070; 87075; 87101; 87116; 87205; 87206; 87252; 88305; 88312; 88342; 89050; 93005; 93010; 93306; 94660; C1894; G0378; G0379; G8978-GP; G8979-GP; G8996-GN; G8997-GN; G8998-GN; J1815; J1940; J2270; J2704; J3490; P9016; Q0138